=== PATIENT | female | born 1965 | race Caucasian/White ===

== ENCOUNTER 2018-10-09 14:22 | Emergency (ER) | payer MEDICAID ==
[~2018-10-09] VITALS: Ht 154.9 cm; Wt 98.9 kg
[2018-10-09 14:35] VITALS: BP_SYST 146; BP_SYST 186; BP_DIAS 103; BP_DIAS 96
--- NOTE | 2018-10-09 14:35 | NUR ---
Patient ambulated to bed 4. RN evaluating patient at bedside.
--- NOTE | 2018-10-09 14:48 | NUR ---
Dr. Underwood evaluating patient at bedside.
--- NOTE | 2018-10-09 14:50 | NUR ---
PT C/O SOB AND COUGH WITH YELLOWISH SPUTUM FOR 1 WEEK. PT STATES SHE HAD PRESSURE-LIKE CHEST PAIN LAST NIGHT, 12/28, BUT NOT AT THIS TIME. DENIES N/V/D. NO COUGH UP BLOOD, NIGHT SWEATS. SKIN IS PINK/WARM/DRY; AAOX4 WITH EVEN AND STEADY GAIT; LUNGS WHEEZES BL ON AUSCULTATION; HR EVEN AND REGULAR; PT DENIES ANY FEVER AT THIS TIME; VSS; PATIENT POSITIONED FOR COMFORT; HOB ELEVATED; BEDRAILS UP X1; BED DOWN. PT IS ON 5L OXYGEN VIA NASAL CANNULA AND MONITOR. OXYGEN SATS IS 98%. ER MADE AWARE OF PT STATUS.
--- NOTE | 2018-10-09 14:52 | NUR ---
Note undone in EDM - 10/09/18 at 1456 by MEDHR PT C/O SOB AND COUGH WITH YELLOWISH SPUTUM FOR 1 WEEK. PT STATES SHE HAD PRESSURE-LIKE CHEST PAIN LAST NIGHT, 12/28, BUT NOT AT THIS TIME. DENIES N/V/D. NO COUGH UP BLOOD, NIGHT SWEATS. SKIN IS PINK/WARM/DRY; AAOX4 WITH EVEN AND STEADY GAIT; LUNGS WHEEZES BL ON AUSCULTATION; HR EVEN AND REGULAR; PT DENIES ANY FEVER AT THIS TIME; VSS; PATIENT POSITIONED FOR COMFORT; HOB ELEVATED; BEDRAILS UP X1; BED DOWN. ER MD MADE AWARE OF PT STATUS.
--- NOTE | 2018-10-09 14:54 | NUR ---
RT IS AT BEDSIDE AND DOING RESPIRATOYR TREATMENT.
[2018-10-09] MEDS ORDERED: ALBUTEROL 0.083% 2.5 MG/3 ML NEBU INH ONE (14:55)
[2018-10-09] MEDS ORDERED: predniSONE 20 MG TAB PO ONE (14:55)
[2018-10-09] MEDS ORDERED: ALBUTEROL SULFATE/IPRATROPIU 3 ML SOL IH ONE (14:55)
[2018-10-09 15:35] VITALS: BP 163/89
--- NOTE | 2018-10-09 15:37 | NUR ---
Patient discharged with v/s stable. Written and verbal after care instructions given and explained. Pt's SOB has been improved. Patient alert, oriented and verbalized understanding of instructions. Ambulatory with steady gait. All questions addressed prior to discharge. ID band removed. Patient advised to follow up with PMD. Rx of Albuterol, Motrin, and Prednisone given. Patient educated on indication of medication including possible reaction and side effects. Opportunity to ask questions provided and answered.
== END 2018-10-09 15:37 | disposition home or self-care (01) ==
LOC: MED 14:22
DX: J44.9 Chronic obstructive pulmonary disease, unspecified (principal); I10 Essential (primary) hypertension; R11.2 Nausea with vomiting, unspecified; Z98.890 Other specified postprocedural states
CPT/HCPCS: 81002; 81025; 94640; 99283; J7512; J7613; J7620

== ENCOUNTER 2018-11-17 16:41 | Inpatient (IN) | payer MEDICAID ==
[~2018-11-17] VITALS: Ht 154.9 cm; Wt 107.5 kg
[2018-11-17 16:54] VITALS: BP 127/56
[2018-11-17] MEDS ORDERED: BUDE1AER IH (16:59)
[2018-11-17] MEDS ORDERED: OMEP20TC12 PO (16:59)
[2018-11-17] MEDS ORDERED: PRON INH (16:59)
[2018-11-17] MEDS ORDERED: ALBUTEROL SULFATE/IPRATROPIU 3 ML SOL IH ONE ×2 (17:10→17:40)
--- NOTE | 2018-11-17 17:32 | NUR ---
ER MD AT THE BEDSIDE ASSESSING THE PT. GOT THE BREATHING TREATMENT. PT BACK ON NC , O2 SAT 92%. BREATHING FINE, APPAERS MORE CALM AND RELAXED AT THIS TIME. WILL CONTINUE TO MONITOR PT.
--- NOTE | 2018-11-17 17:32 | NUR ---
PT BIB [facility] WITH SOBX2 DAYS. HX OF ASTHMA AND COPD. PT IS COUGHHING , HAS SOME BLOOD PRESENT IN COUGH. PT ALSO STATES TO HAVE EPI GASTRIC PAIN THAT RADIATED TO LLQ AND AT UPPER RIBS. PT IS ON OXYGEN MASK, OXYGEN SATURATION 96% AT THIS TIME. HAS BLE +1 PITTING EDEMA. TAKES INHALER AT HOME. PT CONNECTED TO MONITOR. ER MD TO SEE THE PT.
[2018-11-17] MEDS ORDERED: NACL 0.9% 500 ML IV SCH (17:36)
[2018-11-17] MEDS ORDERED: NITROGLYCERIN 2% 1 GM PKT TP ONE (17:40)
[2018-11-17] MEDS ORDERED: ASPIRIN 81 MG TAB.CHEW PO ONE ×2 (17:40)
[2018-11-17] MEDS ORDERED: methylPREDNISolone SS 125 MG/2 ML VIAL IVP ONE (17:40)
[2018-11-17] MEDS ORDERED: MAG SULF 2000 MG/WATER PREMIX 50 ML IV ONE (17:40)
[2018-11-17] MEDS ORDERED: PIPERACILLIN/TAZOBACTAM 3.375 GM in DEXTROSE 5% 50 ML IV ONE (18:10)
[2018-11-17] MEDS ORDERED: AZITHROMYCIN 1,000 MG in DEXTROSE 5% 500 ML IV ONE (18:10)
--- NOTE | 2018-11-17 18:14 | NUR ---
IV ACCESS UNOBTAINABLE AT THIS TIME, DR MAJANO MADE AWARE, WILL SET UP FOR CENTRAL LINE.
[2018-11-17 18:16] LABS: BASOPHILS % (AUTO) 0.1 % (0.0-2.0); EOSINOPHILS # (AUTO) 0.1 K/uL (0-0.4); EOSINOPHILS % (AUTO) 0.8 % (0.0-4.0); HEMATOCRIT 37.7 % (36-48); HEMOGLOBIN 12.5 g/dL (12.0-16.0); LYMPHOCYTES % (AUTO) 6.4 % (20.5-51.1); MEAN CORPUSCULAR HEMOGLOBIN 29 pg (27-31); MEAN CORPUSCULAR HGB CONC 33 g/dL (33-37); MEAN CORPUSCULAR VOLUME 88.4 fL (80-94); MONOCYTES # (AUTO) 1.1 K/uL (0.8-1.0); MONOCYTES % (AUTO) 7.4 % (1.7-9.3); NEUTROPHILS # (AUTO) 12.9 K/uL (1.8-7.7); NEUTROPHILS % (AUTO) 85.3 % (42.2-75.2); PLATELET COUNT (AUTO) 239 K/uL (140-450); RED BLOOD CELL COUNT(AUTO) 4.26 MIL/uL (4.20-5.40); RED CELL DISTRIBUTION WIDTH 13.8 % (11.6-13.7); WHITE BLOOD COUNT (AUTO) 15.1 K/uL (4.8-10.8)
[2018-11-17] MEDS ORDERED: ACETAMINOPHEN 325 MG TAB PO PRN (18:20)
[2018-11-17] MEDS ORDERED: DOCUSATE SODIUM 100 MG GELCAP PO PRN (18:20)
[2018-11-17] MEDS ORDERED: ZOLPIDEM 5 MG TAB PO PRN (18:20)
[2018-11-17 18:31] LABS: PROTHROMBIN TIME 10.1 secs (10.8-13.4)
--- NOTE | 2018-11-17 18:38 | NUR ---
ДМИТРИЙ KRAMER PLACING PICC LINE IN PT. WILL MEDICATE ONC THE PICC LINE IS INSERTED IN PT.
[2018-11-17 18:43] LABS: ALBUMIN 4.1 g/dL (3.4-5.0); ANION GAP 17.7 (8-16); CARBON DIOXIDE 23.2 mmol/L (21-32); CREATININE 1.2 mg/dL (0.6-1.3); TOTAL BILIRUBIN 1.1 mg/dL (0.0-1.0)
[2018-11-17 18:48] LABS: POTASSIUM 2.9 mmol/L (3.5-5.1)
--- NOTE | 2018-11-17 18:50 | NUR ---
DR MAJANO UNABLE TO PLACE CENTRAL LINE AT THIS TIME, WILL REQUEST RESIDENTS TO PLACE LINE GUIDED BY US.
[2018-11-17] MEDS ORDERED: POTASSIUM CHLORIDE 10 MEQ TABER PO ONE (18:55)
--- NOTE | 2018-11-17 18:56 | NUR ---
PT UNABLE TO RECALL ALL HOME MEDS. STATES SHE TAKES MEDS TAHT WER RECONCILLED WELL VITAMIN D AND HIGH BLOOD PRESSURE MEDICATION. Addendum: 11/17/18 at 1857 by MEDWL PT TAKES A EPI PEN AND NEBULIZED ALBUTEROL.
--- NOTE | 2018-11-17 18:57 | NUR ---
RESIDENT TRYING TO PUT THE PICC LINE AGAIN.
[2018-11-17] MEDS: ALBUTEROL SULFATE/IPRATROPIU 3 ML SOL IH SCH (19:00)
[2018-11-17 19:05] LABS: MAGNESIUM 2.5 mg/dL (1.8-2.4); PHOSPHORUS 3.4 mg/dL (2.5-4.9); THYROID STIMULATING HORMONE 1.28 uIU/mL (0.34-3.74)
--- NOTE | 2018-11-17 19:14 | NUR ---
bedside repoert given to pm rn. pt stable at this time. resident inserting central line. consent signed.
--- NOTE | 2018-11-17 19:15 | NUR ---
RECEIVED REPORT FROM DIONTE THAKUR. TRANSFER OF CARE AT THIS TIME.
--- NOTE | 2018-11-17 19:26 | NUR ---
HEAPARIN 100 UNIT VIAL X [address] DARDEN.
[2018-11-17 20:20] VITALS: BP 112/46
[2018-11-17] MEDS: NACL 0.9% 1,000 ML IV SCH (20:20)
--- NOTE | 2018-11-17 20:20 | NUR ---
RECEIVED REPORT FROM ED NURSE AT BEDSIDE. PT IN STABLE CONDITION. AAOX4. INTRODUCED SELF TO PT. BOARD UPDATED. NO COMPLAINTS OF PAIN. PT HAS SOB ON 3L O2 VIA NC. AFEBRILE. PT IS AMBULATORY BUT IS SOB WITH MOVEMENT. PT HAS L UPPER CHEST PICC LINE THAT WAS INSERTED IN THE ER PATENT AND INTACT RUNNING NS@20ML/HR. SKIN WARM, DRY, AND NOT INTACT DUE TO OLD SKIN GRAFTS THAT WERE TAKEN FROM THE ELBOW AREA THAT HAS NOT HEALED PROPERLY. BED LOCKED IN LOW POSITION. CALL LEW WITHIN REACH. SAFETY PRECAUTION IN PLACE. ALL NEEDS MET AT THIS TIME.
--- NOTE | 2018-11-17 20:20 | NUR ---
Patient will be admitted to care of Dr. Varghese. Admited to TELE. Will go to room 106A. Belongings list completed. Report to DIONTE Lofton.
[2018-11-17] MEDS: HYDROcodone/APAP 5/325 MG 1 TAB TAB PO PRN (20:41)
--- NOTE | 2018-11-17 20:41 | NUR ---
NORCO GIVEN FOR 5/10 ABDOMINAL PAIN. PT TOLERATED WELL.
[2018-11-17] MEDS ORDERED: KCL 20 MEQ/WATER INJ PREMIX 200 ML IV SCH (21:00)
--- NOTE | 2018-11-17 21:28 | NUR ---
POTASSIUM HUNG AND RUNNING. Addendum: 11/17/18 at 2329 by Rolly Larsen RN 04/21 BAGS
[2018-11-17] MEDS: ALBUTEROL SULFATE/IPRATROPIU 3 ML SOL IH PRN (22:48)
[2018-11-17] MEDS ORDERED: AZITHROMYCIN 500 MG in DEXTROSE 5% 250 ML IV SCH (23:00)
--- NOTE | 2018-11-17 23:30 | NUR ---
PT LAYING IN BED SLEEPING COMFORTABLY BUT AROUSABLE. NO S/S OF DISTRESS NOTED. WILL CONTINUE TO MONITOR.
[2018-11-18] VITALS: BP 118/69
--- NOTE | 2018-11-18 | NUR ---
CONSENT FOR NEW INSERTION OF CENTRAL LINE OBTAINED.
[2018-11-18] MEDS: MORPHINE SULFATE 2 MG/ML SYR IVP PRN ×5 (00:29→20:27)
--- NOTE | 2018-11-18 00:29 | NUR ---
MORPHINE GIVEN FOR ABDOMINAL PAIN AND BEFORE REINSERTION OF CENTRAL LINE. PT TOLERATED WELL.
--- NOTE | 2018-11-18 00:58 | NUR ---
MD ORDERED TO GIVE HEPARIN SUBQ. PT TOLERATED WELL.
--- NOTE | 2018-11-18 02:20 | NUR ---
PT SLEEPING COMFORTABLY BUT AROUSABLE. NO S/S OF DISTRESS NOTED. WILL CONTINUE TO MONITOR.
--- NOTE | 2018-11-18 03:00 | NUR ---
CENTRAL LINE REPLACED TO R UPPER CHEST. TIME OUT COMPLETE.
[2018-11-18 04:00] VITALS: BP 103/49
[2018-11-18] MEDS ORDERED: cefTRIAXone 1,000 MG VIAL ONE (04:42)
--- NOTE | 2018-11-18 04:50 | NUR ---
LI DENNIS AND RUNNING. PT TOLERATED WELL.
[2018-11-18] MEDS: methylPREDNISolone SS 125 MG/2 ML VIAL IVP SCH ×3 (04:53→20:26)
--- NOTE | 2018-11-18 04:53 | NUR ---
SOLUMEDROL GIVEN IVP. PT TOLERATED WELL.
--- NOTE | 2018-11-18 05:00 | NUR ---
CONSENT FOR CT CHEST ANGIO W/WO CONTRAST OBTAINED.
[2018-11-18] MEDS ORDERED: AZITHROMYCIN 500 MG INJ VIAL IV ONE (05:27)
--- NOTE | 2018-11-18 05:30 | NUR ---
AZITHMYCIN HUNG AND RUNNING. PT TOLERATING WELL.
[2018-11-18] MEDS: PANTOPRAZOLE 40 MG TABEC PO SCH (05:40)
--- NOTE | 2018-11-18 05:40 | NUR ---
PROTONIX GIVEN PO. PT TOLERATED WELL.
[2018-11-18 06:12] LABS: ANION GAP 17.1 (8-16); CARBON DIOXIDE 22.3 mmol/L (21-32); CREATININE 1.5 mg/dL (0.6-1.3); POTASSIUM 3.4 mmol/L (3.5-5.1)
[2018-11-18 06:22] LABS: MAGNESIUM 2.9 mg/dL (1.8-2.4)
[2018-11-18 06:29] LABS: CHOL/HDL RATIO 4.4 (1-4.5)
--- NOTE | 2018-11-18 06:30 | NUR ---
PT AWAKE AND ALERT. NO S/S OF DISTRESS NOTED. WILL CONTINUE TO MONITOR.
[2018-11-18 06:43] LABS: HEMATOCRIT 33.4 % (36-48); HEMOGLOBIN 11.1 g/dL (12.0-16.0); LYMPHOCYTES # (AUTO) 0.4 K/uL (2.5-16.5); LYMPHOCYTES % (AUTO) 3.4 % (20.5-51.1); MEAN CORPUSCULAR HEMOGLOBIN 30 pg (27-31); MEAN CORPUSCULAR HGB CONC 33 g/dL (33-37); MEAN CORPUSCULAR VOLUME 88.7 fL (80-94); MONOCYTES # (AUTO) 0.1 K/uL (0.8-1.0); MONOCYTES % (AUTO) 0.8 % (1.7-9.3); NEUTROPHILS # (AUTO) 12.3 K/uL (1.8-7.7); NEUTROPHILS % (AUTO) 95.8 % (42.2-75.2); PLATELET COUNT (AUTO) 222 K/uL (140-450); RED BLOOD CELL COUNT(AUTO) 3.77 MIL/uL (4.20-5.40); RED CELL DISTRIBUTION WIDTH 13.7 % (11.6-13.7); WHITE BLOOD COUNT (AUTO) 12.8 K/uL (4.8-10.8)
--- NOTE | 2018-11-18 07:30 | NUR ---
RECEIVED REPORT FROM CHECK VIEWER NURSE, NO S/S OF DISTRESS FROM PATIENT THIS MORNING. PT WAS PREPARING TO GO FOR A CT SCAN. WILL CONTINUE TO MONITOR.
[2018-11-18] MEDS: ALBUTEROL SULFATE/IPRATROPIU 3 ML SOL IH SCH ×3 (07:52→20:29)
[2018-11-18 08:08] VITALS: BP 116/55
[2018-11-18] MEDS: FAMOTIDINE 20 MG TAB PO SCH (08:28)
[2018-11-18] MEDS: LACTOBACILLUS RHAMNOSUS GG 1 EACH CAP PO SCH (08:28)
[2018-11-18] MEDS: LORATADINE 10 MG TAB PO SCH (08:32)
--- NOTE | 2018-11-18 08:32 | NUR ---
PATIENT HAS BEEN SCREENED AND CATEGORIZED HIGH NUTRITION RISK. PATIENT WILL BE SEEN WITHIN 1-2 DAYS OF ADMISSION. 11/18/18-11/19/[address]
[2018-11-18] MEDS ORDERED: PIPERACILLIN/TAZOBACTAM 2.25 GM in DEXTROSE 5% 50 ML IV SCH (08:40)
--- NOTE | 2018-11-18 08:55 | NUR ---
GAVE PATIENT PAIN MEDICATION FOR CONTINUOUS ABDOMINAL PAIN, 12/28. PT WAS GRIMACING AND GRASPING TO PAIN SITE. BP WNL PRIOR TO ADMINISTRATION OF PAIN MEDICATION. WILL MONITOR FOR ALLEVIATION OF PAIN POST MEDICATION ADMINISTRATION.
[2018-11-18] MEDS ORDERED: FUROSEMIDE 40 MG/4 ML VIAL IVP SCH (09:00)
[2018-11-18] MEDS ORDERED: LACTOBACILLUS RHAMNOSUS GG 1 EACH CAP PO SCH (09:00)
[2018-11-18] MEDS ORDERED: POTASSIUM CHLORIDE 10 MEQ TABER PO SCH (09:00)
[2018-11-18] MEDS: ONDANSETRON 4 MG/2 ML VIAL IM/IVP PRN (09:09)
[2018-11-18 12:00] VITALS: BP 103/53
[2018-11-18] MEDS ORDERED: PIPERACILLIN/TAZOBACTAM 3.375 GM VIAL IV ONE (12:29)
[2018-11-18] MEDS: PIPERACILLIN/TAZOBACTAM 3.375 GM in DEXTROSE 5% 50 ML IV SCH ×3 (12:51→23:03)
--- NOTE | 2018-11-18 13:10 | NUR ---
ASSISTED PATIENT IN USING THE BEDSIDE COMMODE. PATIENT TOLERATED WELL WITH MINIMAL FATIGUE. WILL CONTINUE TO MONITOR.
--- NOTE | 2018-11-18 15:10 | NUR ---
11/18/18 RD INITIAL ASSESSMENT COMPLETED PLEASE REFER TO NUTRITION ASSESSMENT UNDER CARE ACTIVITY FOR ESTIMATED NUTRITIONAL NEEDS. 1. CONTINUE CARDIAC DIET TOLERATED 2. RD PROVIDED CHF NUTRITION EDUCATION. PT ACCEPTED. 3. RD TO FOLLOW-UP 3-5 DAYS, MODERATE RISK PATRICE DUNN, RD
[2018-11-18 16:00] VITALS: BP_SYST 108; BP_DIAS 53; BP_DIAS 57
--- NOTE | 2018-11-18 16:16 | NUR ---
PATIENT COMPLAINED OF NOT HAVING A BOWEL MOVEMENT IN 4 DAYS. ASKED PATIENT IF SHE WANTED ME TO CONTACT DOCTOR FOR SOMETHING OTHER THAN PRN COLACE BUT PATIENT WANTED TO TRY THE COLACE. ADMINISTERED THE PRN COLACE. WILL CONTINUE TO MONITOR
--- NOTE | 2018-11-18 17:20 | NUR ---
PATIENT HAD A BOWEL MOVEMENT PER DIONTE ARECHIGA.
--- NOTE | 2018-11-18 17:29 | NUR ---
WAS NOTIFIED BY LAB OF REJECTION OF SPUTUM CULTURE. WILL OBTAIN ANOTHER ONE.
[2018-11-18] MEDS: NACL 0.9% 1,000 ML IV SCH (18:20)
--- NOTE | 2018-11-18 19:10 | NUR ---
ENDORSED PT TO FORGE HELPER NURSE FOR CONTINUITY OF CARE
--- NOTE | 2018-11-18 19:11 | NUR ---
REPORT RECEIVED FROM AM NURSE AT BEDSIDE. PT IN STABLE CONDITION. AAOX4. INTRODUCED SELF TO PT. BOARD UPDATED. NO COMPLAINTS OF PAIN. PT HAS SOB AND LABORED BREATHING ON 4L O2 VIA NC. AFEBRILE. PT IS AMBULATORY. IV SITE R IJ TRIPLE LUMEN PATENT AND INTACT. SKIN WARM, DRY, AND NOT INTACT DUE TO BILATERAL WOUNDS ON THE ELBOWS. BED LOCKED IN LOW POSITION. CALL LEW WITHIN REACH. SAFETY PRECAUTION IN PLACE. ALL NEEDS MET AT THIS TIME.
[2018-11-18 20:00] VITALS: BP 126/61
--- NOTE | 2018-11-18 20:27 | NUR ---
HEPARIN GIVEN SUBQ. SOLUMEDROL GIVEN IVP. MORPHINE GIVEN FOR 7/10 ABDOMINAL PAIN. PT TOLERATED WELL.
--- NOTE | 2018-11-18 21:00 | NUR ---
PT NOW ON 5L O2 VIA OXYMIZER AND BIPAP.
[2018-11-18] MEDS: ALBUTEROL SULFATE/IPRATROPIU 3 ML SOL IH PRN (21:08)
--- NOTE | 2018-11-18 21:20 | NUR ---
CALLED BY RN, PATIENT DESATURATING TO 86%. INCREASED OXYGEN TO 5L VIA NASAL CANNULA, PULSE OX SAT 87%. PATIENT PRESENTED WITH INCREASED WORK OF BREATHING AND SOB. SCHEDULED BREATHING TREATMENT ADMINISTERED. TOLERATED TX WELL WITHOUT ADVERSE SIDE EFFECTS. CALLED RESIDENT PHYSICIAN DUE TO PATIENTS CONTINUED LABORED/INCREASED WORK OF BREATHING. ABG DRAWN WITHOUT INCIDENT, RESULTS GIVEN TO PHYSICIAN. PLACED PATIENT ON BIPAP AT DOCUMENTED SETTINGS. PRN BREATHING TREATMENT ADMINISTERED IN-LINE WITH NIPPV DUE TO CONTINUED WHEEZING/SOB. TOLERATED PRN TREATMENT WELL, NO ADVERSE SIDE EFFECTS NOTED. BIPAP CHECK DONE. BIPAP ALARMS ON AND AUDIBLE. PULSE OX ON AND FUNCTIONING. SKIN PROTECTIVE GEL BARRIER IN PLACE. INSTRUCTED PATIENT ON DONNING AND DOFFING OF EQUIPMENT. TOLERATING BIPAP WELL AT THIS TIME. WILL CONTINUE TO MONITOR.
[2018-11-18] MEDS ORDERED: AZITHROMYCIN 250 MG in DEXTROSE 5% 250 ML IV SCH (23:00)
--- NOTE | 2018-11-18 23:03 | NUR ---
VIDHYA HUNG AND RUNNING. PT TOLERATING WELL.
[2018-11-19] VITALS (29 sets, daily range): BP systolic 102–133; BP diastolic 48–94
--- NOTE | 2018-11-19 01:20 | NUR ---
PT SLEEPING COMFORTABLY IN BED BUT AROUSABLE. NO S/S OF DISTRESS NOTED. NO COMPLAINTS OF PAIN. NO SOB ON BIPAP. AFEBRILE. WILL CONTINUE TO MONITOR.
[2018-11-19] MEDS: ALBUTEROL SULFATE/IPRATROPIU 3 ML SOL IH PRN ×2 (01:40→05:31)
--- NOTE | 2018-11-19 01:50 | NUR ---
BIPAP CHECK DONE. TOLERATING BIPAP WELL. BIPAP ALARMS ON AND AUDIBLE. SKIN PROTECTIVE GEL IN PLACE. PATIENT ON BEDSIDE PULSE OX MONITOR. TOLERATING WELL. PRN BREATHING TREATMENT ADMINISTERED- PATIENT WHEEZING. TOLERATED TX WELL, NO ADVERSE SIDE EFFECTS. NO ACUTE RESPIRATORY DISTRESS NOTED AT THIS TIME. WILL CONTINUE TO MONITOR.
--- NOTE | 2018-11-19 03:30 | NUR ---
PT SLEEPING COMFORTABLY IN BED BUT AROUSABLE. NO S/S OF DISTRESS NOTED. WILL CONTINUE TO MONITOR.
[2018-11-19] MEDS: methylPREDNISolone SS 40 MG/ML VIAL IVP SCH ×3 (04:42→18:57)
[2018-11-19] MEDS: MORPHINE SULFATE 2 MG/ML SYR IVP PRN ×2 (04:42→12:18)
--- NOTE | 2018-11-19 04:42 | NUR ---
SOLUMEDROL GIVEN IVP. MORPHINE GIVEN FOR 10/27 ABDOMINAL PAIN. PT TOLERATED WELL.
[2018-11-19] MEDS: PIPERACILLIN/TAZOBACTAM 3.375 GM in DEXTROSE 5% 50 ML IV SCH ×4 (05:13→23:40)
--- NOTE | 2018-11-19 05:13 | NUR ---
VIDHYA HUNG AND RUNNING. PT TOLERATED WELL.
[2018-11-19] MEDS: PANTOPRAZOLE 40 MG TABEC PO SCH (05:30)
--- NOTE | 2018-11-19 05:30 | NUR ---
PROTONIX GIVEN PO. PT TOLERATED WELL.
--- NOTE | 2018-11-19 05:45 | NUR ---
BIPAP CHECK DONE. PRN BREATHING TX ADMINISTERED. TOLERATED TX WELL WITHOUT ADVERSE SIDE EFFECTS. NO ACUTE DISTRESS NOTED AT THIS TIME. WILL CONTINUE TO MONITOR.
[2018-11-19 06:40] LABS: PHOSPHORUS 5.5 mg/dL (2.5-4.9)
[2018-11-19 06:45] LABS: ANION GAP 14.8 (8-16); CARBON DIOXIDE 24.6 mmol/L (21-32); CREATININE 1.7 mg/dL (0.6-1.3); POTASSIUM 4.4 mmol/L (3.5-5.1)
--- NOTE | 2018-11-19 06:45 | NUR ---
PT AWAKE AND ALERT BRP. NO S/S OF DISTRESS NOTED. WILL CONTINUE TO MONITOR.
[2018-11-19 06:50] LABS: HEMATOCRIT 31.8 % (36-48); HEMOGLOBIN 10.4 g/dL (12.0-16.0); MEAN CORPUSCULAR HEMOGLOBIN 30 pg (27-31); MEAN CORPUSCULAR HGB CONC 33 g/dL (33-37); MEAN CORPUSCULAR VOLUME 89.8 fL (80-94); PLATELET COUNT (AUTO) 220 K/uL (140-450); RED BLOOD CELL COUNT(AUTO) 3.54 MIL/uL (4.20-5.40); WHITE BLOOD COUNT (AUTO) 18.8 K/uL (4.8-10.8)
[2018-11-19] MEDS: ALBUTEROL SULFATE/IPRATROPIU 3 ML SOL IH SCH ×3 (06:57→18:47)
--- NOTE | 2018-11-19 07:01 | NUR ---
RECEIVED PT OFF OF BIPAP 5L NASAL CANNULA. PT TACHYPNEIC STATES SLIGHT SOB. PT STATES SHE IS IN PAIN 11/27 WILL NOTIFY NURSE.
--- NOTE | 2018-11-19 07:15 | NUR ---
RECEIVED BEDSIDE REPORT FROM WAREHOUSE HELPER NURSE FOR CONTINUITY OF CARE. PATIENT AWAKE AND SITTING UP ON BED. SPO2 MONITOR AT BEDSIDE, SPO2 IS AT 88% AT THIS TIME. RESPIRATION EVEN AND UNLABORED. PATIENT AAOX4, DENIED PAIN. NO SIGNS OF DISTRESS NOTED. IV ON RIJ TRIPLE LUMEN,CLEAN AND INTACT, INFUSING PER MD ORDER. PATIENT IS ABLE TO AMBULATE WITH ASSIST AND CONTINENT. DISCUSSED PLAN OF CARE WITH PATIENT AND PATIENT VERBALIZED UNDERSTANDING. TELE MONITOR ATTACHED. SAFETY MEASURES IN PLACE. BED IN LOW POSITION AND CALL LIGHT WITHIN REACH. INSTRUCTED PATIENT TO USE THE CALL LIGHT FOR ANY ASSISTANCE AND PATIENT WAS AWARE.
[2018-11-19] MEDS: HYDROcodone/APAP 5/325 MG 1 TAB TAB PO PRN (07:44)
--- NOTE | 2018-11-19 07:44 | NUR ---
PATIENT COMPLAINED 5/10 PAIN ON HER SHOULDER, ADMINISTERED PRN PAIN MED NORCO, PATIENT TOLERATED WELL. PATIENT IS ON 6L OXIMIZER AND ON O2 MONITOR AND SPO2 86% AT THIS TIME. ELEVATED HOB AND INSTRUCTED PATIENT TO FOCUS ON BREATHING. WILL NOTIFY RT FOR CURRENT SPO2.
--- NOTE | 2018-11-19 07:56 | NUR ---
RT WAS AT BEDSIDE AND ASSESSING PATIENT AT THIS TIME.
[2018-11-19 07:59] LABS: BASOPHILS % (MANUAL) 0 % (0-2); EOSINOPHILS % (MANUAL) 0 % (0-4); LYMPHOCYTES % (MANUAL) 1 % (20-46); MONOCYTES % (MANUAL) 2 % (5-12)
--- NOTE | 2018-11-19 08:10 | NUR ---
RT CHANGED PATIENT FROM 6L OXYMIZER TO 60% BIPAP AND SPO2 IS AT 92% AT THIS TIME. RR 20, AND RESPIRATION EVEN AND UNLABORED. PATIENT IS RESTING ON BED AT THIS TIME. NO SIGNS OF DISTRESS NOTED. SAFETY MEASURES IN PLACE. TELE MONITOR ATTACHED. BED IN LOW POSITION AND CALL LIGHT WITHIN REACH. INSTRUCTED PATIENT TO USE THE CALL LIGHT FOR ANY ASSISTANCE AND PATIENT WAS AWARE.
[2018-11-19] MEDS ORDERED: FUROSEMIDE 20 MG/2 ML VIAL IVP SCH ×2 (09:00→14:00)
[2018-11-19] MEDS: LACTOBACILLUS RHAMNOSUS GG 1 EACH CAP PO SCH (09:24)
[2018-11-19] MEDS: FAMOTIDINE 20 MG TAB PO SCH (09:24)
[2018-11-19] MEDS: LORATADINE 10 MG TAB PO SCH (09:25)
--- NOTE | 2018-11-19 09:27 | NUR ---
ADMINISTERED MEDS PER MD ORDER, PATIENT TOLERATED WELL. MEDICATION EDUCATION PROVIDED AT BEDSIDE AND PATIENT VERBALIZED UNDERSTANDING. RESPIRATION EVEN AND UNLABORED ON 60% BIPAP. PATIENT DENIED PAIN. NO SIGNS OF DISTRESS NOTED. SAFETY MEASURES IN PLACE. TELE MONITOR ATTACHED. BED IN LOW POSITION AND CALL LIGHT WITHIN REACH. INSTRUCTED PATIENT TO USE THE CALL LIGHT FOR ANY ASSISTANCE AND PATIENT WAS AWARE.
--- NOTE | 2018-11-19 10:10 | NUR ---
CALLED DR JOEL ABOUT RENEW RESTRAINT ORDER. DR JOEL SAID OK, SHE WILL DO IT
--- NOTE | 2018-11-19 10:29 | NUR ---
PT TOLERATING BIPAP WELL AT THIS TIME. ALARMS ON AND FUNCTIONING. WILL CONTINUE TO MONITOR.
--- NOTE | 2018-11-19 11:21 | NUR ---
PATIENT IS RESTING ON BED AT THIS TIME. AROUSABLE TO VOICE. EVEN AN UNLABORED CHEST RISES ON 60% BIPAP, SPO2 IS AT 91% AT THIS TIME. NO SIGNS OF DISTRESS NOTED. TELE MONITOR ATTACHED. SAFETY MEASURES IN PLACE. BED IN LOW POSITION AND CALL LIGHT WITHIN REACH. I
--- NOTE | 2018-11-19 12:18 | NUR ---
ASSISTED PATIENT TO USE THE BEDSIDE COMMODE AND GOT BACK ON BED SAFELY. PATIENT COMPLAINED SHE HAS 8/10 PAIN AROUND HER BACK, ADMINISTERED PRN PAIN MED, PATIENT TOLERATED WELL. SWITCHED PT TO OXYMIZER AND PATIENT IS EATING LUNCH AT THIS TIME. SAFETY MEASURES IN PLACE. BED IN LOW POSITION AND CALL LIGHT WITHIN REACH. INSTRUCTED PATIENT TO USE THE CALL LIGHT FOR ANY ASSISTANCE AND PATIENT WAS AWARE.
--- NOTE | 2018-11-19 12:44 | NUR ---
PATIENT IS EATING LUNCH AND TALKING TO MARC AT BEDSIDE. NO SIGNS OF DISTRESS NOTED. TELE MONITOR ATTACHED. SAFETY MEASURES IN PLACE. BED IN LOW POSITION AND CALL LIGHT WITHIN REACH. INSTRUCTED PATIENT TO USE THE CALL LIGHT FOR ANY ASSISTANCE AND PATIENT WAS AWARE.
[2018-11-19] MEDS: CALCIUM ACETATE 667 MG TAB PO SCH ×2 (13:13→17:08)
--- NOTE | 2018-11-19 13:15 | NUR ---
ADMINISTERED MEDS PER MD ORDER, PATIENT TOLERATED WELL. PATIENT IS TALKING TO MARC AT BEDSIDE. RESPIRATION EVEN AND UNLABORED ON 6L OXIMYZER, AND SPO2 IS AT 87%. TELE MONITOR ATTACHED. SAFETY MEASURES IN PLACE. BED IN LOW POSITION AND CALL LIGHT WITHIN REACH. INSTRUCTED PATIENT TO USE THE CALL LIGHT FOR ANY ASSISTANCE AND PATIENT WAS AWARE.
--- NOTE | 2018-11-19 13:57 | NUR ---
FOUND PT OFF OF BIPAP ON OXYMIZER DESATURATING BELOW PHYSICIAN ORDER. PT PLACED BACK ON BIPAP DUE TO INCREASED WOB AND DECREASED SPO2. BREATHING TX TO BE ADMINISTERED. BIPAP ALARMS ON AND FUNCTIONING. PROTECTA-GEL PLACED UNDER MASK FOR SKIN PROTECTION. WILL CONTINUE TO MONITOR.
--- NOTE | 2018-11-19 14:17 | NUR ---
ADMINISTERED MED PER MD ORDER, PATIENT TOLERATED WELL. MEDICATION EDUCATION PROVIDED TO PATIENT AND PATIENT VERBALIZED UNDERSTANDING. COLLECTED URINE VIA VOID AND DELIVERED TO LAB. PATIENT AWAKE AND RESTING ON BED AT THIS TIME. NO SIGNS OF DISTRESS NOTED. TELE MONITOR ATTACHED. SAFETY MEASURES IN PLACE. BED IN LOW POSITION AND CALL LIGHT WITHIN REACH. INSTRUCTED PATIENT TO USE THE CALL LIGHT FOR ANY ASSISTANCE AND PATIENT WAS AWARE.
--- NOTE | 2018-11-19 14:30 | NUR ---
CALLED DR JOEL ABOUT RENEW RESTRAINT ORDER. DR JOEL SAID OK, SHE WILL DO IT
--- NOTE | 2018-11-19 14:48 | NUR ---
CALLED DR JOEL ABOUT MG 1.6. DR JOEL SAID OK. NO ORDERS RECEIVED.
--- NOTE | 2018-11-19 15:25 | NUR ---
ASSISTED PATIENT TO USE THE BEDSIDE COMMODE AND BACK ON BED SAFELY. RT PUT THE BIPAP BACK ON FOR PATIENT. NO SIGNS OF DISTRESS NOTED. TELE MONITOR ATTACHED. SAFETY MEASURES IN PLACE. BED IN LOW POSITION AND CALL LIGHT WITHIN REACH. INSTRUCTED PATIENT TO USE THE CALL LIGHT FOR ANY ASSISTANCE AND PATIENT WAS AWARE.
--- NOTE | 2018-11-19 15:35 | NUR ---
PT REMAINS TACHYPNEIC AFTER USING BEDSIDE COMMODE. PT TOLERATING SETTINGS WELL AT THIS TIME. WILL CONTINUE TO MONITOR.
--- NOTE | 2018-11-19 16:04 | NUR ---
EXPLAINED TO PATIENT THAT LAST SPUTUM COLLECTED CONTAIN TOO MUCH SALIVA AND LAB WAS NOT ABLE TO USE IT. NEED TO COLLECT SPUTUM AGAIN, PATIENT VERBALIZED UNDERSTANDING. PROVIDED SPECIMEN CUP TO PATIENT AND INSTRUCTED PATIENT TO USE IT WHEN SHE HAS SPUTUM. PATIENT SAID OK.
--- NOTE | 2018-11-19 16:34 | NUR ---
FIO2 INCREASED TO 75% DUE TO SPO2 LOW 80'S. AND NURSE MADE AWARE.
--- NOTE | 2018-11-19 16:38 | NUR ---
CONTACTED [facility] AT [phone]. HE STATED TO FAX THE MEDICAL OXYGEN REQUEST FORM AND ABG ON ROOM AIR 2 DAYS PRIOR TO DC. FAX NUMBER [phone]. CHARGE NURSE AND DR DASILVA MADE AWARE.
--- NOTE | 2018-11-19 16:39 | NUR ---
PATIENT IS SITTING UP ON EDGE OF BED AND TALKING TO DAUGHTER HARSHA AT BEDSIDE. NO SIGNS OF DISTRESS NOTED. TELE MONITOR ATTACHED. SAFETY MEASURES IN PLACE. BED IN LOW POSITION AND CALL LIGHT WITHIN REACH. INSTRUCTED PATIENT TO USE THE CALL LIGHT FOR ANY ASSISTANCE AND PATIENT WAS AWARE.
--- NOTE | 2018-11-19 16:42 | NUR ---
DR JOEL IS TALKING TO PATIENT AND PATIENT'S DAUGHTER AT BEDSIDE. TELE MONITOR ATTACHED. SAFETY MEASURES IN PLACE. BED IN LOW POSITION AND CALL LIGHT WITHIN REACH.
--- NOTE | 2018-11-19 16:46 | NUR ---
SPOKE TO REGARDING ABG TO BE DONE ON ROOM AIR AND PT NOT BEING ABLE TO COME OFF OF OXYGEN/BIPAP DUE TO LOW SPO2 AND SOB AT THIS TIME. PHYSICIAN STATES UNDERSTANDING AND STATES FOR ABG NOT TO BE DONE AT THIS TIME.
--- NOTE | 2018-11-19 17:09 | NUR ---
ADMINISTERED MED PER MD ORDER, PATIENT TOLERATED WELL. MEDICATION EDUCATION PROVIDED TO PATIENT AT BEDSIDE AND PATIENT VERBALIZED UNDERSTANDING. PATIENT IS SITTING UP ON BED AND SPO2 88% ON BIPAP. DAUGHTER HARSHA IS BY BEDSIDE. SAFETY MEASURES IN PLACE. BED IN LOW POSITION AND CALL LIGHT WITHIN REACH.
--- NOTE | 2018-11-19 17:30 | NUR ---
TRANSFERRED PATIENT TO ICU. PATIENT AWAKE AND ON BIPAP SPO2 AT 87%. DAUGHTER HARSHA IS BY BEDSIDE.
[2018-11-19] MEDS ORDERED: SUCCINYLCHOLINE CHLORIDE 200 MG/10 ML VIAL IVP ONE (17:35)
[2018-11-19] MEDS ORDERED: ETOMIDATE 20 MG/10 ML VIAL IVP ONE (17:35)
[2018-11-19] MEDS ORDERED: NOREPINEPHRINE 16 MG in DEXTROSE 5% 250 ML IV PRN (17:45)
--- NOTE | 2018-11-19 18:00 | NUR ---
PT IS BEING INTUBATED BY DR JOEL AND DR JENKINS. ASSISTED MD WITH INTUBATION MED.
--- NOTE | 2018-11-19 18:15 | NUR ---
STARTED PROPOFOL. DRY WEIGHT 116KG. RASS GOAL -3. PT IS +3 AT THIS TIME. RESTRAINT APPLIED. ETT TO VENT, LIP LINE 25.
[2018-11-19] MEDS: NACL 0.9% 1,000 ML IV SCH (18:20)
--- NOTE | 2018-11-19 18:29 | NUR ---
UNABLE TO OBTAIN VENT PARAMETERS AT THIS TIME DUE TO PT AGITATION AND ABNORMAL BREATHING PATTERN WILL ENDORSE TO [employer] DEVELOPER. PT ETT IS 7.5@ 23GUMS. VENT ALARMS ON AND FUNCTIONING. PT REMAINS AGITATED. AIRWAY IS PATENT AND SECURE. BILATERAL BREATH SOUNDS HEARD ON AUSCULTATION.
--- NOTE | 2018-11-19 18:30 | NUR ---
OGT INSERTED. PT IS CALM AT THIS TIME. RASS -3. REPORT RECEIVED FROM TELE NURSE ED.
[2018-11-19 18:36] LABS: APPEARANCE,URINE CLEAR (CLEAR); BILIRUBIN,URINE NEGATIVE (NEGATIVE); BLOOD, URINE 1+ (NEGATIVE); COLOR,URINE YELLOW (YELLOW); LEUKOCYTE ESTERASE ,URINE NEGATIVE (NEGATIVE); NITRITE, URINE NEGATIVE (NEGATIVE); UGLUCOSE NEGATIVE (NEGATIVE)
[2018-11-19 18:42] LABS: BARBITURATE, URINE NEG. ng/ml (NEG <=200); BENZODIAZEPINE, URINE NEG. ng/mL (NEG <=200); CANNABINOID, URINE NEG. ng/mL (NEG <=50); COCAINE, URINE NEG. ng/mL (NEG <=300); OPIATE, URINE POS. ng/mL (NEG <=2000); PHENCYCLIDINE SCREEN,URINE NEG. ng/mL (NEG <=25)
--- NOTE | 2018-11-19 19:20 | NUR ---
RECEIVED REPORT FROM AM NURSE. PT AT BED, SEDATED, RASS -2, PERRL 3MM, BRISK, HEART RATE REGULAR, SINUS RHYTHM ON MONITOR, S1S2 PRESENT, CAP REFILL <3S, LUNG SOUNDS CLEAR THROUGHOUT, PT ON ETT TO VENT, SIZE 7.5, TAPED AT 25 AT THE LIP, FIO2 100%, RR 16, PEEP 5, FLOW 28, ABDOMEN, SOFT, ROUND, NONDISTENDED, NONTENDER, OG TUBE IN PLACE, FC INSERTED, DRAINING CLEAR, YELLOW, URINE, BLADDER, SOFT, ROUND, NONDISTENDED, NONTENDER, SKIN, WARM, DRY, COLOR APPROPRIATE TO ETHNICITY, SKIN NON INTACT, OPEN WOUND ON LEFT ELBOW, OPTIFOAM DRESSING PLACED, ROUND SKIN BUMP NOTED ON LEFT ELBOW NEAR THE OPEN WOUND. BILATERAL SOFT WRIST RESTRAINTS NOTED, RIGHT INTRAJUGULAR CENTRAL LINE, TRIPLE LUMEN, RUNNING PROPOFOL AT 40 MCG/KG/MIN, NS RUNNING AT 10 ML /HR, DRY WEIGHT 116 KG, HOB AT 30 DEGREES, SIDERAILS UP X2, CALL LIGHT WITHIN REACH. Addendum: 11/20/18 at 0319 by Jean-Paul Jones RN VENT SETTINGS AT AC/PC
--- NOTE | 2018-11-19 20:28 | NUR ---
[address] RODRIGUEZ POST ABG DRAW. CHANGE PC TO 28CM INCREASE RR TO 18 INCREASE PEEP TO 6CM AND DRAW ABG IN AM
--- NOTE | 2018-11-19 21:58 | NUR ---
CALLED DR. ZAMORANO REGARDING HEPARIN 5000 UNITS SQ MEDICATION. REPORTED HGB OF 10.4, HCT 31.8, PLT 220, MODERATE BLOOD ON SPUTUM ON ET SUCTION, DR ZAMORANO SAID OK TO GIVE. MEDICATION GIVEN.
[2018-11-19] MEDS: fentaNYL 1 MG in NACL 0.9% 80 ML IV PRN (22:16)
--- NOTE | 2018-11-19 23:33 | NUR ---
2330 LOWERED FIO2 TO 90%. SATS 92%
[2018-11-19] MEDS: PROPOFOL 1000 MG/100 ML PREMIX 100 ML IV PRN (23:39)
[2018-11-20] VITALS (107 sets, daily range): BP systolic 103–137; BP diastolic 27–74
--- NOTE | 2018-11-20 01:31 | NUR ---
SPUTUM SAMPLE UPTAINED AND SENT TO LAB
--- NOTE | 2018-11-20 02:46 | NUR ---
PT AT BED, EYES CLOSED, BREATHING REGULARLY, ETT TO VENT, SIDE RAILS UP X2, HOB AT 30 DEGREES, CALL LIGHT WITHIN REACH, BED AT LOWEST POSITION.
--- NOTE | 2018-11-20 03:12 | NUR ---
PT AT BED, EYES CLOSED, BREATHING REGULARLY, ETT TO VENT, PERFORMED VAP ORAL CARE. PT TOLERATED PROCEDURE WELL. SIDE RAILS UP X2, HOB AT 30 DEGREES, CALL LIGHT WITHIN REACH, BED AT LOWEST POSITION.
[2018-11-20] MEDS: PROPOFOL 1000 MG/100 ML PREMIX 100 ML IV PRN ×6 (03:32→21:12)
[2018-11-20 05:25] LABS: HEMATOCRIT 30.7 % (36-48); HEMOGLOBIN 10.1 g/dL (12.0-16.0); LYMPHOCYTES # (AUTO) 0.7 K/uL (2.5-16.5); LYMPHOCYTES % (AUTO) 4.5 % (20.5-51.1); MEAN CORPUSCULAR HEMOGLOBIN 29 pg (27-31); MEAN CORPUSCULAR HGB CONC 33 g/dL (33-37); MEAN CORPUSCULAR VOLUME 89.4 fL (80-94); MONOCYTES # (AUTO) 0.9 K/uL (0.8-1.0); MONOCYTES % (AUTO) 5.8 % (1.7-9.3); NEUTROPHILS # (AUTO) 13.3 K/uL (1.8-7.7); PLATELET COUNT (AUTO) 206 K/uL (140-450); RED BLOOD CELL COUNT(AUTO) 3.43 MIL/uL (4.20-5.40); RED CELL DISTRIBUTION WIDTH 13.8 % (11.6-13.7); WHITE BLOOD COUNT (AUTO) 14.8 K/uL (4.8-10.8)
[2018-11-20 05:41] LABS: CARBON DIOXIDE 28.9 mmol/L (21-32); CREATININE 1.6 mg/dL (0.6-1.3); PHOSPHORUS 5.4 mg/dL (2.5-4.9); POTASSIUM 4.9 mmol/L (3.5-5.1)
[2018-11-20 05:52] LABS: NEUTROPHILS % (AUTO) 89.7 % (42.2-75.2)
[2018-11-20] MEDS: PIPERACILLIN/TAZOBACTAM 3.375 GM in DEXTROSE 5% 50 ML IV SCH ×3 (05:56→17:50)
[2018-11-20] MEDS: ALBUTEROL SULFATE/IPRATROPIU 3 ML SOL IH SCH ×3 (06:31→19:17)
--- NOTE | 2018-11-20 06:50 | NUR ---
PHONE CALL TO PATIENT'S NEXT OF KIN, GORDON TRAN, RESULTED TO WRONG NUMBER ACCORDING TO THE PERSON WHO RECEIVED THE CALL.
--- NOTE | 2018-11-20 07:24 | NUR ---
CHANGE OF SHIFT REPORT GIVEN TO AM NURSE RADHA. PT AT STABLE CONDITION AT THIS TIME.
--- NOTE | 2018-11-20 07:25 | NUR ---
RECEIVED BEDSIDE CHANGE OF SHIFT REPORT FROM PM NURSE. PATIENT'S VITALS ARE STABLE AND PATIENT'S DRY WEIGHT IS 116 KG AND IS SEDATED WTIH RASS -3 AND ON FENTANYL 58 MCG/H AND PROPOFOL 40 MCH/KG/MIN. PERRL PRESENT, HOWEVER PUPIL REACTION TO LIGHT IS SLUGISH. PATIENT HAS RIJ CENTRAL TRIPLE LUMEN CENTRAL LINE WITH ALL LUMENS PATENT AND DRESSING/INSERTION SITE IS DRY AND INTACT. IVF NORMAL SALINE RUNNING AT 10 ML/H. ETT SIZE 7.5 TO VENT WITH ETT 25CM AT TOOTH/GUM LINE. VENTILATOR MODE AC/PC; SETTINGS: FI02: 80%, INSPIRATORY PRESSURE: 28, RR: 18, AND PEEP OF 6. NSR ON DAM ATTENDANT. EUPNEIC RESPIRATIONS WITH SLIGHT BILATERAL UPPER LOBE EXPIRATORY WHEEZES AND DIMINISHED BILATERAL LOWER LOBE LUNG SOUNDS. SKIN WARM, DRY, AND INTACT EXCEPT FOR LEFT ELBOW OPEN SKIN WOUND. SEVERAL OLD SCARS NOTED ON EXTREMITIES. BILATERAL LOWER LEG 1+ PITTING EDEMA PRESENT. PATIENT HAS OG FEEDING TUBE RUNNING AT 10ML/H OF VITAL AF FORMULA AND WATER FLUSH OF 50CC Q4H. OG TUBE PLACEMENT AND PATENCY CONFIRMED, WITH NO RESIDUALS. PATIENT HAS BILATERAL WRIST RESTRAINTS. PHILIP CATHETER IN PLACE, PATENT AND WITH CLEAR JUDITH URINE. BED LEFT IN LOW POSITION, HOB AT 30 DEGREES, AND CALL LIGHT WITHIN REACH. WILL CONTINUE TO MONITOR PATIENT.
--- NOTE | 2018-11-20 08:05 | NUR ---
DR BUTTS AND THE MEDICAL RESIDENTS CAME IN THIS MORNING TO CHECK ON PATIENT. WILL CONTINUE TO FOLLOW DOCTOR'S ORDERS PRESCRIBED.
--- NOTE | 2018-11-20 08:18 | NUR ---
RAJESH REPORTED TO DR BOOGIE
--- NOTE | 2018-11-20 08:30 | NUR ---
RECEIVED PT ON CARESCAPE ON DOCUMENTED SETTINGS, ALARMS ARE ON AND AUDIBLE, PTS EET IS SECURE 23 [address] ANCH[address] FAST IN [address]ACE,BS DIMINISHED, PT IN HF ASLEEP, HHN GVIEN I\L WITH 3 MG DUONEB, BMV HOB, VENT PLUGGED INTO RED OUTLET
[2018-11-20] MEDS: PANTOPRAZOLE 40 MG INJ VIAL IVP SCH (08:58)
[2018-11-20] MEDS: FUROSEMIDE 20 MG/2 ML VIAL IVP SCH (08:58)
[2018-11-20] MEDS: FAMOTIDINE 20 MG TAB PO SCH (09:00)
[2018-11-20] MEDS: LORATADINE 10 MG TAB PO SCH (09:01)
[2018-11-20] MEDS: LACTOBACILLUS RHAMNOSUS GG 1 EACH CAP PO SCH (09:02)
[2018-11-20] MEDS: methylPREDNISolone SS 40 MG/ML VIAL IVP SCH (09:02)
--- NOTE | 2018-11-20 09:25 | NUR ---
RECEIVED A CALL FROM PT'S DAUGHTER, HARSHA PELAYO, UPDATES GIVEN ON PT'S CONDITION. PER HARSHA, SHE CANNOT COME AND VISIT TODAY, ADMISSION FORMS WILL BE SIGNED BY PT'S SIGNIFICANT OTHER, GORDON TRAN.
[2018-11-20] MEDS: NACL 0.9% 1,000 ML IV SCH (09:56)
--- NOTE | 2018-11-20 10:41 | NUR ---
PATIENT'S AT BEDSIDE. UPDATES GIVEN TO HIM ON PATIENT'S CONDITION. PATIENT'S VITALS SIGNS ARE STABLE AND NO SIGNS OF DISTRESS ARE NOTED AT THIS TIME.
--- NOTE | 2018-11-20 10:57 | NUR ---
DR. COTTON AT BEDSIDE, SPEAKING WITH PT'S .
--- NOTE | 2018-11-20 12:00 | NUR ---
TEMPERATURE TAKEN, ORAL CARE, KELL-CARE, AND REPOSITIONING OF PATIENT DONE. VITAL SIGNS ARE STABLE AND NO SIGNS OF DISTRESS ARE PRESENT AT THIS TIME.
[2018-11-20] MEDS: fentaNYL 1 MG in NACL 0.9% 80 ML IV PRN (12:19)
[2018-11-20] MEDS: THERAHONEY WOUND DRESSING TP SCH (12:21)
[2018-11-20] MEDS: FOAM DRESSING TP SCH ×2 (12:22→12:43)
--- NOTE | 2018-11-20 13:00 | NUR ---
WOUND CARE PERFORMED ORDERED, ON PATIENT'S LEFT ELBOW, AND DRESSING CHANGED. PATIENT TOLERATED WELL, AND NO SIGNS OF DISTRESS AT THIS TIME.
--- NOTE | 2018-11-20 14:30 | NUR ---
PER PHARMACISTMARCOS, DRY WEIGHT SHOULD BE THE FIRST WEIGHT WHEN PATIENT IS ADMITTED, WHICH IS 104 KG. RATE CORRECTION MADE AT THIS TIME BASED ON DRY WEIGHT 104 KG.
--- NOTE | 2018-11-20 16:00 | NUR ---
TEMPERATURE TAKEN, ORAL CARE, KELL-CARE, AND REPOSITIONING OF PATIENT DONE. VITAL SIGNS ARE STABLE AND NO SIGNS OF DISTRESS ARE PRESENT AT THIS TIME.
--- NOTE | 2018-11-20 16:20 | NUR ---
PT'S DAUGHTER HARSHA PELAYO AT BEDSIDE. PER HARSHA, OK TO GIVE UPDATES ON PT'S THREE OTHER CHILDREN: MICHAEL MARISCAL, JUSTICE SON, KALYANI HUYNH AND PT'S SISTER: MARINA KENNEDY. HARSHA PELAYO WILL MAKE DECISIONS AND SIGN CONSENT FORMS AT THIS TIME. ```````````````````````````````````````````````````````````````````````````````````````````` ```````````````````````````````````````````````````````````````````````````````````````````` ```````````````````````````````````````````````````````````````````````````````````````````` `````````
[2018-11-20] MEDS: CALCIUM ACETATE 667 MG TAB NG SCH (17:37)
--- NOTE | 2018-11-20 19:25 | NUR ---
CHANGE OF SHIFT BEDSIDE REPORT GIVEN TO PM NURSE. PATIENT IS STABLE WITH NO SIGNS OF DISTRESS.
--- NOTE | 2018-11-20 19:30 | NUR ---
RECEIVED REPORT FROM AM NURSE. PT ETT TO VENT WITH VENT MODE AC/PC ,FIO2 80 %,IP 28 AND PEEP 6. ETT SIZE NO 7.5 WITH 25 CM LIP LINE. NO S/S OF RESP DISTRESS, NO SOB. HOB UP 30-45 DEGREE ALL THE TIMES. PT IS SEDATED WITH PROPOFOL DRIP AT 40 MCG/KG/MIN WITH DRY WT IS 104 KG AND FENTANYL DRIP AT 58 MCG/HR. RASS -3. SR ON MONITOR. CENTRAL LINE TO RIGHT IJ TRIPLE LUMEN INTACT WELL.WITH IVF NS AT 10CC/HR.ABD SOFT NON DISTENDED.SKIN WARM TO TOUCH.OGT IN PLACE WITH GT FEEDING VITAL AF AT 10 CC/HR AND H20 FLUSH AT 50 CC Q 4HRS WITH NO RESIDUAL NOTED. F/C IN PLACE WITH YELLOW CLEAR URINE NOTED. KEPT CLEAN AND DRY.
--- NOTE | 2018-11-20 19:40 | NUR ---
COME TO SEE PT NO NEW ORDER.
--- NOTE | 2018-11-20 19:45 | NUR ---
RT REPORTING FIO2 DOWN FROM 80 TO 60%
--- NOTE | 2018-11-20 19:46 | NUR ---
PT FOUND ON CHARTED SETTINGS. TX GIVEN INLINE W/O ADVERSE EFFECT. AIRWAY PATENT AND SECURE. VENT PLUGGED INTO RED OUTLET. ALARMS SET APPROPRIATELY AND AUDIBLE. LOWERED FIO2 TO 60%. PT STABLE AT THIS TIME. WILL MONITOR.
--- NOTE | 2018-11-20 20:00 | NUR ---
MARC THE BOY FRIEND AT BED SIDE UP DATE PT CONDITION TO HIM.
--- NOTE | 2018-11-20 21:30 | NUR ---
COME TO SEE PT NEW ORDER GIVEN CLEOCIN AND LEVAQUIN ORDER .
[2018-11-20] MEDS ORDERED: LEVOFLOXACIN 500 MG/D5W PREMIX 100 ML IV SCH (22:00)
--- NOTE | 2018-11-20 23:45 | NUR ---
LEVAQUIN IV ABT GIVEN ORDER.
[2018-11-21] VITALS (107 sets, daily range): BP systolic 96–134; BP diastolic 49–82
[2018-11-21] MEDS: PROPOFOL 1000 MG/100 ML PREMIX 100 ML IV PRN ×7 (00:53→21:32)
[2018-11-21] MEDS: LORazepam 2 MG/ML VIAL IM/IVP PRN (01:44)
[2018-11-21] MEDS: FOAM DRESSING TP SCH ×2 (01:45→12:29)
--- NOTE | 2018-11-21 01:45 | NUR ---
PT RASS +2 PT IS AWAKE, FREQUENT NON PURPOSED MOVEMENT AND FIGHT VENTILATOR. INCREASE PROPOFOL DRIPS TO 45 MCG/KG/MIN. CONTINUE TO MONITOR CLOSELY
[2018-11-21] MEDS ORDERED: CLINDAMYCIN 900 MG/6 ML VIAL IV ONE (03:13)
[2018-11-21] MEDS: CLINDAMYCIN 900 MG in DEXTROSE 5% 100 ML IV SCH ×3 (04:00→20:36)
--- NOTE | 2018-11-21 04:00 | NUR ---
AM CARE GIVEN ,SPONGE BATH, ORAL CARE AN F/C CARE.
[2018-11-21] MEDS: NACL 0.9% 1,000 ML IV SCH (05:15)
--- NOTE | 2018-11-21 05:30 | NUR ---
AM MEDS GIVEN
[2018-11-21] MEDS: ALBUTEROL SULFATE/IPRATROPIU 3 ML SOL IH SCH ×3 (06:32→19:39)
--- NOTE | 2018-11-21 06:32 | NUR ---
REC'D PT ON CARESCAPE VENT SETTINGSPC 28 RR 18 ITIME 1.2 PEEP 6 FIO2 60% ALARMS ON AND AUDIBLE AND AMBU BAG AT SIDE OF VENT AND VENT IS PLUGGED INTO RED OUTLET, I\L TX GIVEN WITH DUONEB 3ML WITH NO ADVERSE REACTION POST TX B\S ARE RHONCHI BILATERALLY, SXN MODERATE AMT OF THICK YELLOW SECRETIONS, PT IS ORALLY INTUBATED WITH 7.5 ET TUBE SECURED WITH ANCHOR FAST AT 23CM AND SKIN INTEGRITY IS INTACT PT IS RESTING
[2018-11-21 06:35] LABS: HEMOGLOBIN 9.8 g/dL (12.0-16.0); MEAN CORPUSCULAR HEMOGLOBIN 30 pg (27-31); MEAN CORPUSCULAR HGB CONC 34 g/dL (33-37); MEAN CORPUSCULAR VOLUME 88.7 fL (80-94); PLATELET COUNT (AUTO) 194 K/uL (140-450); RED BLOOD CELL COUNT(AUTO) 3.27 MIL/uL (4.20-5.40); RED CELL DISTRIBUTION WIDTH 13.6 % (11.6-13.7); WHITE BLOOD COUNT (AUTO) 11.2 K/uL (4.8-10.8)
[2018-11-21 06:39] LABS: ANION GAP 11.4 (8-16); CREATININE 0.9 mg/dL (0.6-1.3); POTASSIUM 4.4 mmol/L (3.5-5.1)
[2018-11-21 06:44] LABS: MAGNESIUM 2.6 mg/dL (1.8-2.4); PHOSPHORUS 3.4 mg/dL (2.5-4.9)
--- NOTE | 2018-11-21 07:30 | NUR ---
RECEIVED BEDSIDE REPORT FROM SOCIAL MEDIA DIRECTOR RN. PT IS SEDATED. RASS -3 AT THIS TIME. PERRL. AFEBRILE, FLACC 0. NORMAL SINUS RHYTHM ON MONITOR. S1 S2 HEARD. ETT TO VENT W/ SETTINGS: AC/PC 18, FIO2 60%, P INSP 28, PEEP 6. BREATHING EVEN AND UNLABORED. INSPIRATORY BREATH SOUNDS CLEAR, EXPIRATORY WHEEZES HEARD TO RIGHT UPPER LOBE. OGT TO PLACE, PLACEMENT CONFIRMED, NO RESIDUALS. PT IS RECEIVING VITAL AF AT 10 ML/HR WITH WATER FLUSH 50 ML Q4H. ABDOMEN SOFT, ROUND NONTENDER W/ ACTIVE BOWEL SOUNDS. CENTRAL LINE TLC TO RIJ PATENT AND INTACT, RUNNING PROPOFOL DRIP AT 45 MCG/KG/MIN (DRY WEIGHT 104 KG), FENTANYL AT 52 MCG/HR, IV FLUID NS AT 10 ML/HR. PHILIP CATH IN PLACE DRAINING CLEAR YELLOW URINE TO GRAVITY. SKIN IS DRY AND WARM TO TOUCH, OPEN WOUND TO LEFT ELBOW NOTED. MULTIPLE OLD SKIN GRAFTS NOTED TO BUE/BLE. BED IN LOWEST POSITION LOCKED, HOB AT 30 DEGREES, CALL LIGHT WITHIN REACH. NO SINGS OF DISTRESS NOTED AT THIS TIME. WILL CONTINUE TO MONITOR.
[2018-11-21 07:35] LABS: BASOPHILS % (MANUAL) 0 % (0-2); EOSINOPHILS % (MANUAL) 0 % (0-4); LYMPHOCYTES % (MANUAL) 6 % (20-46); MONOCYTES % (MANUAL) 4 % (5-12)
--- NOTE | 2018-11-21 07:46 | NUR ---
DR. BUTTS AND RESIDENT GROUP IN TO SEE PT. WILL FOLLOW UP ON ORDERS.
--- NOTE | 2018-11-21 08:10 | NUR ---
SUPERVISOR PAPER TESTING AT BEDSIDE FOR BLLE ARTERIAL US. PT RASS -3 BUT REFUSED ULTRASOUND TO BE TAKEN BY SHAKING HEAD AND LEGS AT THIS TIME. CHARGE NURSE AWARE.
[2018-11-21] MEDS: CALCIUM ACETATE 667 MG TAB NG SCH ×2 (08:22→16:35)
[2018-11-21] MEDS: FUROSEMIDE 20 MG/2 ML VIAL IVP SCH (08:23)
[2018-11-21] MEDS: methylPREDNISolone SS 40 MG/ML VIAL IVP SCH (08:23)
[2018-11-21] MEDS: PANTOPRAZOLE 40 MG INJ VIAL IVP SCH (08:23)
[2018-11-21] MEDS: FAMOTIDINE 20 MG TAB PO SCH (08:23)
[2018-11-21] MEDS: LACTOBACILLUS RHAMNOSUS GG 1 EACH CAP PO SCH (08:23)
[2018-11-21] MEDS: LORATADINE 10 MG TAB PO SCH (08:23)
[2018-11-21] MEDS ORDERED: DOCUSATE 100 MG/10 ML UDC PO PRN (08:40)
--- NOTE | 2018-11-21 08:42 | NUR ---
MEDICATIONS ADMINISTERED ORDERED. PT TOLERATED WELL.
[2018-11-21] MEDS ORDERED: BISACODYL 10 MG SUPP RC SCH (09:00)
[2018-11-21] MEDS: SENNA 8.6 MG TAB PO SCH (09:19)
[2018-11-21] MEDS: fentaNYL 1 MG in NACL 0.9% 80 ML IV PRN ×2 (09:20→21:39)
--- NOTE | 2018-11-21 11:09 | NUR ---
PT'S DAUGHTER, HARSHA, AND BOYFRIEND, MARC AT BEDSIDE. UPDATES GIVEN ON PT'S CONDITION. PT IS NOT IN ANY DISTRESS AT THIS TIME. VSS.
--- NOTE | 2018-11-21 11:39 | NUR ---
HEALTH CARE SOCIAL WORKER, LUCIA, AT BEDSIDE, WELL PT'S DAUGHTER AND BOYFRIEND. EXPLAINED AND EDUCATION GIVEN ON THE PURPOSE OF ARTERIAL ULTRASOUND OF THE LEGS, PT STILL REFUSED ULTRASOUND TO BE TAKEN AT THIS TIME.
[2018-11-21] MEDS: THERAHONEY WOUND DRESSING TP SCH (12:29)
--- NOTE | 2018-11-21 13:15 | NUR ---
THE DAUGHTER HARSHA [phone] GIVE 3 NAME THAT AUTHORIZE TO HAVE PATIENT INFORMATION LISA.
--- NOTE | 2018-11-21 13:25 | NUR ---
PT AGREED TO HAVE BLE ARTERIAL ULTRASOUND DONE. ELEMENT WINDING MACHINE TENDER AND FAMILY AT BEDSIDE. VSS. RASS -3. NO SIGNS OF DISTRESS NOTED AT THIS TIME. WILL CONTINUE TO MONITOR.
--- NOTE | 2018-11-21 15:55 | NUR ---
VAP ORAL CARE GIVEN, TURNED AND REPOSITIONED FOR COMFORT AND OFF LOADING PRESSURE AREAS. VSS. SAFETY MEASURES ENSURED. WILL CONTINUE TO MONITOR.
--- NOTE | 2018-11-21 18:10 | NUR ---
NO CHANGE IN CONDITION AT THIS TIME. TURNED AND REPOSITIONED. PT TOLERATED WELL. PT IS NOT IN ANY DISTRESS AT THIS TIME.
--- NOTE | 2018-11-21 19:27 | NUR ---
REPORT GIVEN TO PROJECTOR BOOTH OPERATOR RN FOR CONTINUITY OF CARE. PT IS IN STABLE CONDITION.
--- NOTE | 2018-11-21 19:30 | NUR ---
RECEIVED REPORT FROM AM NURSE. INITIAL ASSESSMENT COMPLETED. AWAKE, PT REORIENTED OF THE ENVIRONMENT. PT IS ON ETT TO VENT, PC CONTROL FIO2 60% P INSP 28 RATE 18 PEEP 6. ATTACHED TO PRODUCTION CELL LEADER, PULSE OXIMETER. ON OGT FEEDING, PATENT, INTACT. IV ACCESS RIGHT IJ TLC, PATENT, INTACT, INFUSING WELL, ON PROPOFOL AND FENTANYL DRIP. RASS -3, DW 104 KG. ON SOFT WRIST RESTRAINTS ORDERED. PHILIP CATH INTACT. BED IN LOW POSITION, SAFETY MEASURE ENSURE, WILL CONTINUE TO MONITOR.
[2018-11-21] MEDS: LEVOFLOXACIN 500 MG/D5W PREMIX 100 ML IV SCH (21:32)
--- NOTE | 2018-11-21 21:45 | NUR ---
DR. NIETO AT BEDSIDE. UPDATED OF PATIENT'S CONDITION. NO NEW ORDERS AT THIS TIME.
[2018-11-22] VITALS (107 sets, daily range): BP systolic 88–168; BP diastolic 20–78
[2018-11-22] MEDS: FOAM DRESSING TP SCH ×2 (01:16→12:43)
[2018-11-22] MEDS: PROPOFOL 1000 MG/100 ML PREMIX 100 ML IV PRN ×6 (02:08→21:59)
--- NOTE | 2018-11-22 02:30 | NUR ---
PT ASLEEP AT THIS TIME. WILL CONTINUE TO MONITOR.
--- NOTE | 2018-11-22 04:40 | NUR ---
DR. ZAMORANO NOTIFIED OF PATIENT FROTHY SPUTUM, PT STARTED BECOMING RESTLESS. PT STARETED TO COUGH OUT HER ET TUBE AND WANTS IT REMOVE. PT REORIENTED. DR. ZAMORANO AT BEDSIDE. NO NEW ORDERS AT THIS TIME. WILL CONTINUE TO MONITOR.
[2018-11-22] MEDS: CLINDAMYCIN 900 MG in DEXTROSE 5% 100 ML IV SCH ×3 (05:33→21:10)
[2018-11-22] MEDS: ALBUTEROL SULFATE/IPRATROPIU 3 ML SOL IH SCH ×3 (06:44→19:21)
--- NOTE | 2018-11-22 06:45 | NUR ---
RECEIVED PT ON CARESCAPE ON DOCUMENTED SETTINGS, ALARMS ARE ON AND AUDIBLE, PTS ETT IS SECURE 23 CM, ANCHOR FAST IN PLACE, BS COARSE, PT IN HF QUIET , HHN GIVEN I\L WITH 3 MG DUONEB, BMV HOB, VENT PLUGGED INTO RED OUTLET
[2018-11-22 07:17] LABS: ANION GAP 10.2 (8-16); CARBON DIOXIDE 33.3 mmol/L (21-32); CREATININE 0.7 mg/dL (0.6-1.3); POTASSIUM 4.5 mmol/L (3.5-5.1)
[2018-11-22 07:19] LABS: EOSINOPHILS % (AUTO) 0.4 % (0.0-4.0); HEMATOCRIT 31.1 % (36-48); HEMOGLOBIN 10.2 g/dL (12.0-16.0); LYMPHOCYTES # (AUTO) 1.1 K/uL (2.5-16.5); LYMPHOCYTES % (AUTO) 9.3 % (20.5-51.1); MEAN CORPUSCULAR HEMOGLOBIN 29 pg (27-31); MEAN CORPUSCULAR HGB CONC 33 g/dL (33-37); MEAN CORPUSCULAR VOLUME 89.1 fL (80-94); MONOCYTES # (AUTO) 0.8 K/uL (0.8-1.0); MONOCYTES % (AUTO) 6.6 % (1.7-9.3); NEUTROPHILS # (AUTO) 10.1 K/uL (1.8-7.7); NEUTROPHILS % (AUTO) 83.7 % (42.2-75.2); PLATELET COUNT (AUTO) 220 K/uL (140-450); RED BLOOD CELL COUNT(AUTO) 3.49 MIL/uL (4.20-5.40); RED CELL DISTRIBUTION WIDTH 13.5 % (11.6-13.7)
[2018-11-22 07:23] LABS: MAGNESIUM 2.1 mg/dL (1.8-2.4); PHOSPHORUS 2.9 mg/dL (2.5-4.9)
--- NOTE | 2018-11-22 07:30 | NUR ---
RECEIVED REPORT FROM LOCKSTITCH WAISTBAND SETTER NURSE. PT IS ETT TO VENT, PRESSURE CONTROL 28, FIO2 60%, RR 18, PEEP 6. PT IS ABLE TO OPEN EYES BUT NO EYE CONTACT. PT ON SOFT RESTRAINTS BECAUSE PT TRIES TO REMOVE TUBES. RASS -3. SR ON MARKETING DESIGNER. RIGHT IJ RUNNING PROPOFOL 45MCG/KG/MIN, DRY WEIGHT 104KG, FENTANYL 104MCG/HR. OGT FEEDING, VITAL AF RUNNING AT 10ML/HR. PHILIP CATH IN PLACE DRAINING CLEAR YELLOW URINE WITH SEDIMENTS. LEFT ELBOW DRESSING NOTED, DRY AND INTACT. BED IN LOWEST POSITION, SAFETY MEASURE IN PLACE, WILL CONTINUE TO MONITOR.
--- NOTE | 2018-11-22 07:30 | NUR ---
REPORT GIVEN TO AM NURSE FOR CONTINUITY OF CARE.
--- NOTE | 2018-11-22 08:30 | NUR ---
OGT AUSCULTATED, POSITIVE PLACEMENT. SCHEDULED MEDS GIVEN VIA OGT.
[2018-11-22] MEDS: CALCIUM ACETATE 667 MG TAB NG SCH ×2 (08:43→16:35)
[2018-11-22] MEDS: LACTOBACILLUS RHAMNOSUS GG 1 EACH CAP PO SCH (08:44)
[2018-11-22] MEDS: LORATADINE 10 MG TAB PO SCH (08:44)
[2018-11-22] MEDS: FAMOTIDINE 20 MG TAB PO SCH (08:44)
[2018-11-22] MEDS: SENNA 8.6 MG TAB PO SCH (08:45)
[2018-11-22] MEDS: PANTOPRAZOLE 40 MG INJ VIAL IVP SCH (08:45)
[2018-11-22] MEDS: FUROSEMIDE 20 MG/2 ML VIAL IVP SCH (08:45)
[2018-11-22] MEDS: methylPREDNISolone SS 40 MG/ML VIAL IVP SCH (08:45)
--- NOTE | 2018-11-22 09:00 | NUR ---
INCREASE TUBE FEEDING RATE TO 30ML/HR.
[2018-11-22] MEDS: fentaNYL 1 MG in NACL 0.9% 80 ML IV PRN ×2 (10:55→21:58)
--- NOTE | 2018-11-22 11:14 | NUR ---
PER DOCTOR MARYCRUZ REQUEST RIGHT AND LEFT ELBOWS PARTIAL THICKNESS LOSS OF SKIN ASSESSED OLD SKIN JUAN SCARS, WOUND BED 100 % RED, AREAS ARE CLEAN NO S/S OF INFECTION,KELL-WOUND SKIN INTACT, RECOMMEND TO CLEANSE WITH NS. PAT DRY, APPLY HYDROGEL AND COVER WITH DRY DRESSING QD AND PRN IF SOILING. dR. JOEL NOTIFIED OF RECOMMENDATION
--- NOTE | 2018-11-22 12:30 | NUR ---
0ML RESIDUAL. INCREASED TUBE FEEDING TO 60ML/HR. Addendum: 11/22/18 at 1314 by Judd Ferrara RN WATER FLUSH 140ML, Q6H
[2018-11-22] MEDS: SKINTEGRITY HYDROGEL TP SCH (12:43)
--- NOTE | 2018-11-22 13:32 | NUR ---
DECREASE FIO2 TO 50 SPO2 92
--- NOTE | 2018-11-22 16:11 | NUR ---
11/22/18 RD FOLLOW UP COMPLETED PLEASE REFER TO NUTRITION ASSESSMENT UNDER CARE ACTIVITY FOR ESTIMATED NUTRITIONAL NEEDS. 1. CONTINUE VITAL @ 60 ML/HR -THIS WILL PROVIDE 1440 ML OF VOLUME, 1728 KCAL, AND 108 GM OF PROTEIN, WHICH MEETS 100% OF ESTIMATED NEEDS 2. CONTINUE FREE WATER FLUSH OF 140 ML Q6H 3. WHEN PATIENT IS MEDICALLY STABLE CONSIDER SWALLOW EVALUATION WITH RECOMMENDED FOOD TEXTURES AND CARDIAC DIET. 4. RD WILL FOLLOW UP WITHIN 2-3 DAYS, HIGH RISK PATRICE DUNN RD
--- NOTE | 2018-11-22 16:20 | NUR ---
CALLED RESIDENT MD JOEL, LAURA 2.9, IF SHE STILL WANT TO CONTINUE PHOSLO, SHE SAID SHE WILL DC IT.
[2018-11-22] MEDS: NACL 0.9% 1,000 ML IV SCH (16:58)
--- NOTE | 2018-11-22 18:30 | NUR ---
PT DENIES ANY SOB, PT STATED HE DOES NOT FEEL ANYTHING DIFFERENT. PAIN IMPROVED AFTER THE DILAUDID. Addendum: 11/23/18 at 4183 by Judd Ferrara RN PLEASE DISCARD, WRONG PT.
--- NOTE | 2018-11-22 19:30 | NUR ---
RECEIVED BEDSIDE REPORT FROM MORNING SHIFT RN. VSS, TEMP 97.8, BP 105/61, RR 26, SATING 97%, HR 69. SR ON SENIOR RESEARCH FELLOW. ETT TO VENT, AC PC MODE, FIO2=50%, PINSP 28% RR 18, TINSP 1.2, PEEP 6, PMAX 50. RT ISHMAEL AT BEDSIDE TO SEE PATIENT, SUCTION, VAP ORAL CARE PROVIDED. LUNG SOUND RHONCHI/COARSE ON BILATERAL UPPER AND LOWER LOBES. OGT IN PLACE, VITAL SAF AT 60CC/HR. BOWEL SOUNDS ACTIVE X4. PHILIP IN PLACE, URINE IS JUDITH IN COLOR. PT HAS RIGHT IJ CENTRAL LINE IN PLACE WITH FENTANLY AT 10.4ML/HR, PROPOFOL AT 45MCG/MIN, NS AT 10CC/HR. PT SKIN NORMAL IN COLOR, HYDROGEL ON BILATERAL ELBOWS, OPEN SKIN COVERED WITH DRESSING. SKIN GRAFT/SCALY SKIN NOTED ON UPPER AND LOWER EXTREMITY. ALLERGY TO FLU VACCINE NOTED ON BAND. DRY WEIGHT OF 104KG NOTED FOR PROPOFOL DRIP. RASS -3 MAINTAINED.
--- NOTE | 2018-11-22 19:30 | NUR ---
RECEIVED BEDSIDE REPORT FROM MORNING SHIFT RN, WEIGHT. VSS, TEMP 97.8, BP 105/61, RR 26, SATING 97%, HR 69. SR ON BEAUTY OPERATOR APPRENTICE. ETT TO VENT, AC PC MODE, FIO2=50%, PINSP 28% RR 18, TINSP 1.2, PEEP 6, PMAX 50. RT ISHMAEL AT BEDSIDE TO SEE PATIENT, SUCTION, VAP ORAL CARE PROVIDED. LUNG SOUND RHONCHI/COARSE ON BILATERAL UPPER AND LOWER LOBES. OGT IN PLACE, VITAL SAF AT 60CC/HR. BOWEL SOUNDS ACTIVE X4. PHILIP IN PLACE, URINE IS JUDITH IN COLOR. PT HAS RIGHT IJ CENTRAL LINE IN PLACE WITH FENTANLY AT 10.4ML/HR, PROPOFOL AT 45MCG/MIN, NS AT 10CC/HR. PT SKIN NORMAL IN COLOR, HYDROGEL ON BILATERAL ELBOWS, OPEN SKIN COVERED WITH DRESSING. SKIN GRAFT/SCALY SKIN NOTED ON UPPER AND LOWER EXTREMITY. ALLERGY TO FLU VACCINE NOTED ON BAND. DRY WEIGHT OF 104KG NOTED FOR PROPOFOL DRIP. RASS -3 MAINTAINED. Addendum: 11/22/18 at 2313 by Jessica Gonzalez RN NOTE WAS WRITTEN BY JESSICA RAPP.
[2018-11-22] MEDS ORDERED: FLUCONAZOLE 200 MG/NS PREMIX 100 ML IV SCH (19:55)
--- NOTE | 2018-11-22 20:55 | NUR ---
PT FAMILY FRIEND AT BEDSIDE TO SEE PATIENT.
[2018-11-22] MEDS: LEVOFLOXACIN 500 MG/D5W PREMIX 100 ML IV SCH (21:09)
--- NOTE | 2018-11-22 23:05 | NUR ---
DR. LOCO IN TO SEE PATIENT, NO NEW ORDERS AT THIS TIME.
[2018-11-23] VITALS (105 sets, daily range): BP systolic 94–153; BP diastolic 50–85
--- NOTE | 2018-11-23 00:33 | NUR ---
VAP ORAL CARE PROVIDED, PT REPOSITIONED, VSS. WHITE ORAL SECRETIONS NOTED, ORAL SUCTIONING PROVIDED. NO BM AT THIS TIME, URINE REMAINS JUDITH IN COLOR. HOB ABOVE 30 DEG.
[2018-11-23] MEDS: PROPOFOL 1000 MG/100 ML PREMIX 100 ML IV PRN ×5 (01:05→22:27)
[2018-11-23] MEDS: FOAM DRESSING TP SCH ×2 (01:05→13:28)
--- NOTE | 2018-11-23 04:30 | NUR ---
AM CARES PROVIDED TO PATIENT, MAXIMUM ASSIST X2. PT BECOMES MORE AGITATED UPON REPOSITIONING, FENTANLY AT 10.4ML/HR AND PROPOFOL AT 28.08ML/HR MAINTAINED A RASS -3.
[2018-11-23] MEDS: CLINDAMYCIN 900 MG in DEXTROSE 5% 100 ML IV SCH ×3 (04:35→20:26)
--- NOTE | 2018-11-23 05:54 | NUR ---
UPDATED DR. BRIAN DR TO RENEW RESTRAINT ORDER.
[2018-11-23 06:19] LABS: CREATININE 0.6 mg/dL (0.6-1.3)
[2018-11-23] MEDS: ALBUTEROL SULFATE/IPRATROPIU 3 ML SOL IH SCH ×3 (06:20→18:56)
--- NOTE | 2018-11-23 06:20 | NUR ---
rec'd pt on carescape vent settings pc 28 rr 18 itime 1.2 peep 6 fio2 50% alarms on and audible and ambu bag at side of vent and vent is plugged into red outlet, i\l tx given with duoneb 3ml with no adverse reaction post tx b\sare rhonchi bilaterally, sxn pt moderated amt of thick yellow secretions, pt is orally intubated with 7.5 et tube secured with anchor fast at 23 cm at midline and skin integrity is intact pt is resting
--- NOTE | 2018-11-23 06:25 | NUR ---
DR. JOEL IN TO SEE PATIENT.
[2018-11-23 06:26] LABS: ANION GAP 7.2 (8-16); POTASSIUM 4.2 mmol/L (3.5-5.1)
[2018-11-23 06:28] LABS: PHOSPHORUS 3.3 mg/dL (2.5-4.9)
[2018-11-23 06:46] LABS: BASOPHILS % (AUTO) 0.2 % (0.0-2.0); EOSINOPHILS # (AUTO) 0.2 K/uL (0-0.4); EOSINOPHILS % (AUTO) 2.3 % (0.0-4.0); HEMATOCRIT 30.9 % (36-48); HEMOGLOBIN 10.3 g/dL (12.0-16.0); LYMPHOCYTES # (AUTO) 1.4 K/uL (2.5-16.5); LYMPHOCYTES % (AUTO) 13.7 % (20.5-51.1); MEAN CORPUSCULAR HEMOGLOBIN 30 pg (27-31); MEAN CORPUSCULAR HGB CONC 34 g/dL (33-37); MEAN CORPUSCULAR VOLUME 89.7 fL (80-94); MONOCYTES # (AUTO) 0.7 K/uL (0.8-1.0); MONOCYTES % (AUTO) 7.4 % (1.7-9.3); NEUTROPHILS # (AUTO) 7.6 K/uL (1.8-7.7); NEUTROPHILS % (AUTO) 76.4 % (42.2-75.2); PLATELET COUNT (AUTO) 230 K/uL (140-450); RED BLOOD CELL COUNT(AUTO) 3.45 MIL/uL (4.20-5.40); RED CELL DISTRIBUTION WIDTH 13.5 % (11.6-13.7); WHITE BLOOD COUNT (AUTO) 9.9 K/uL (4.8-10.8)
--- NOTE | 2018-11-23 07:06 | NUR ---
GAVE BEDSIDE REPORT TO MORNING SHIFT RNMALA.
--- NOTE | 2018-11-23 07:15 | NUR ---
RECEIVED REPORT FROM FIGHTER PILOT NURSELUKE. PT IS ETT TO VENT, LIP LINE 25CM, AC/PC, PRESSURE CONTROL 28MMHG, FIO2 50%, RR 18, PEEP 6. PT IS ABLE TO OPEN EYES SPONTANEOUSLY BUT NO EYE CONTACT. PT ON SOFT WRIST RESTRAINTS BECAUSE PT TRIES TO REMOVE TUBES. BILATERAL CAP REFILL <3 SECS, RASS -3. SR/SB ON INCIDENT ENGINEER. RIGHT IJ RUNNING PROPOFOL 45MCG/KG/MIN, DRY WEIGHT 104KG, FENTANYL 104MCG/HR. OGT FEEDING, VITAL AF RUNNING AT 60ML/HR. PHILIP CATH IN PLACE DRAINING CLEAR YELLOW URINE. LEFT ELBOW DRESSING NOTED, DRY AND INTACT. BED IN LOWEST POSITION, SAFETY MEASURE IN PLACE, WILL CONTINUE TO MONITOR.
--- NOTE | 2018-11-23 07:40 | NUR ---
ORAL CARE AND PHILIP CARE DONE.
[2018-11-23] MEDS: fentaNYL 1 MG in NACL 0.9% 80 ML IV PRN ×2 (07:51→18:45)
[2018-11-23] MEDS: methylPREDNISolone SS 40 MG/ML VIAL IVP SCH (08:14)
[2018-11-23] MEDS: FUROSEMIDE 20 MG/2 ML VIAL IVP SCH (08:15)
[2018-11-23] MEDS: PANTOPRAZOLE 40 MG INJ VIAL IVP SCH (08:15)
[2018-11-23] MEDS: SENNA 8.6 MG TAB PO SCH (08:15)
[2018-11-23] MEDS: LACTOBACILLUS RHAMNOSUS GG 1 EACH CAP PO SCH (08:15)
[2018-11-23] MEDS: LORATADINE 10 MG TAB PO SCH (08:15)
[2018-11-23] MEDS: FAMOTIDINE 20 MG TAB PO SCH (08:15)
--- NOTE | 2018-11-23 08:50 | NUR ---
OGT AUSCULTATED, POSITIVE PLACEMENT. SCHEDULED MEDS GIVEN VIA OGT.
--- NOTE | 2018-11-23 10:45 | NUR ---
PT IS AWAKEN BY HER , PT AGITATED, KICKING HER LEGS. TURN UP PROPOFOL TO 50MCG/KG/HR.
--- NOTE | 2018-11-23 10:53 | NUR ---
SW attempted to conduct assessment with patient but patient was intubated. Per nursing staff, patient was sedated. SW will attempt to conduct assessment with patient at a later time.
[2018-11-23] MEDS: SKINTEGRITY HYDROGEL TP SCH (13:28)
--- NOTE | 2018-11-23 17:15 | NUR ---
DECREASED PROPOFOL TO 40MCG, PER DR ELIAS'S ORDER. GOAL IS 20MCG/KG/HR AND CPAP TRIAL TOMORROW.
[2018-11-23] MEDS: ONDANSETRON 4 MG/2 ML VIAL IM/IVP PRN (17:46)
[2018-11-23] MEDS: LORazepam 2 MG/ML VIAL IM/IVP PRN (18:30)
--- NOTE | 2018-11-23 18:30 | NUR ---
PT AWAKE, COUGHING AND AGITATED, TRYING TO REMOVE HER SOFT WRIST RESTRAINTS. ATIVAN GIVEN.
[2018-11-23] MEDS: NACL 0.9% 1,000 ML IV SCH (18:45)
--- NOTE | 2018-11-23 19:14 | NUR ---
Received pt stable on vent support at documented settings, suctioned small amount of thin clear secretions, hhn tx given, tolerated well, no resp distress or SOB noted at this time, 7.5 ETT secured at 23 cm at the lip, alarms set and audible, ambu bag at bedside, vent plugged into red outlet, cont pulse ox on, will cont to monitor.
--- NOTE | 2018-11-23 19:20 | NUR ---
RECEIVED BEDSIDE REPORT FROM MORNING SHIFT RNMALA. SB-SR ON RECORDS SUPERVISOR. BP 110/56, HR 57-60, RR 14, TEMPORAL 97.8, SATING 95%. LUNG SOUNDS MILDLY COARSE ON UPPER LOBER BILATERAL LOBES, PT HAS THICK, MINIMAL SECRETIONS. ON ETT TO VENT, AC PC MODE FIO2=50, RR 18, FLOW 50, Pinsp 28, Tinsp-1.0, Peep 6. BOWEL SOUNDS ACTIVE X4 QUADRANTS, NO BM AT THIS TIME. PT HAS OGT WITH TUBE FEEDINGS VITALS AT AT 60CC/HR, NO RESIDUAL. PHILIP CATH IN PLACE, URINE IS JUDITH IN COLOR. PT HAS RIGHT IJ CENTRAL LINE INFUSING FENTANYL AT 10.4ML/HR, PROPOFOL AT 40MCG/MIN, AND NS AT 10CC/HR. SKIN IS DRY/NORMAL IN COLOR. PT HAS WOUND ON RIGHT AND LEFT ELBOW. HOB ELEVATED ABOVE 30 DEG, STANDARD PRECAUTIONS, MAINTAINED. DRY WEIGHT FOR PROPOFOL AT 104KG.
--- NOTE | 2018-11-23 20:10 | NUR ---
PT FAMILY AT BEDSIDE TO SEE PATIENT, VAP ORAL CARE PROVIDED. REPOSITIONED PATIENT, MAX ASSIST X 2-3. HOB ABOVE 40 DEG, LEGS ELEVATED, ON BILATERAL WRIST RESTRAINTS.
[2018-11-23] MEDS: LEVOFLOXACIN 500 MG/D5W PREMIX 100 ML IV SCH (20:26)
--- NOTE | 2018-11-23 23:30 | NUR ---
PT OPENS EYES SPONTANEOUSLY AND ABLE WAS ABLE TO NOD OR SHAKE HEAD TO COMMANDS, DENIES PAIN/NAUSEA/DISCOMFORT AT THIS TIME. SEDATION WAS TITRATED UP TO MAINTAIN RASS -3. PT AT TIMES PULLING ON RESTRAINTS AND TWISTING BODY IN THE BED. NO BM AT THIS TIME, URINE IN PHILIP CATHETER IN JUDITH IN COLOR. NO SIGNS ON SKIN TEAR/IRRITATION AT SITE OF SOFT RESTRAINTS.
[2018-11-24] VITALS (107 sets, daily range): BP systolic 82–150; BP diastolic 31–99
[2018-11-24] MEDS: FOAM DRESSING TP SCH ×2 (01:32→13:54)
--- NOTE | 2018-11-24 03:00 | NUR ---
PT REPOSITIONED, VAP ORAL CARE PROVIDED, SUCTIONING PROVIDED X2, [place]/WHITE COLOR SPUTUM NOTED ON ORAL/MOUTH SUCTIONING.
[2018-11-24] MEDS: CLINDAMYCIN 900 MG in DEXTROSE 5% 100 ML IV SCH ×3 (04:41→20:20)
[2018-11-24 06:13] LABS: BASOPHILS % (AUTO) 0.1 % (0.0-2.0); EOSINOPHILS # (AUTO) 0.2 K/uL (0-0.4); EOSINOPHILS % (AUTO) 2.6 % (0.0-4.0); HEMATOCRIT 30.2 % (36-48); HEMOGLOBIN 10.1 g/dL (12.0-16.0); LYMPHOCYTES # (AUTO) 1.2 K/uL (2.5-16.5); LYMPHOCYTES % (AUTO) 13.7 % (20.5-51.1); MEAN CORPUSCULAR HEMOGLOBIN 30 pg (27-31); MEAN CORPUSCULAR HGB CONC 34 g/dL (33-37); MEAN CORPUSCULAR VOLUME 89.2 fL (80-94); MONOCYTES # (AUTO) 0.7 K/uL (0.8-1.0); MONOCYTES % (AUTO) 7.4 % (1.7-9.3); NEUTROPHILS # (AUTO) 6.8 K/uL (1.8-7.7); NEUTROPHILS % (AUTO) 76.2 % (42.2-75.2); PLATELET COUNT (AUTO) 237 K/uL (140-450); RED BLOOD CELL COUNT(AUTO) 3.39 MIL/uL (4.20-5.40); RED CELL DISTRIBUTION WIDTH 13.5 % (11.6-13.7); WHITE BLOOD COUNT (AUTO) 8.9 K/uL (4.8-10.8)
[2018-11-24] MEDS: fentaNYL 1 MG in NACL 0.9% 80 ML IV PRN ×2 (06:28→16:20)
--- NOTE | 2018-11-24 06:31 | NUR ---
DR. JOEL IN TO SEE PATIENT, UPDATED ON CONDITOINS, DISCUSSED PLAN TO WEAN PATIENT OFF THIS AM PER DR ELIAS ORDER. START WEAN OFF SEDATION AT 0800 TO START WEAN AT 0900. Addendum: 11/24/18 at 0738 by Jessica Gonzalez RN DR JOEL TO UPDATE RESTRAINT ORDER
[2018-11-24 07:05] LABS: ANION GAP 8.8 (8-16); CARBON DIOXIDE 36.5 mmol/L (21-32); CREATININE 0.5 mg/dL (0.6-1.3); POTASSIUM 4.3 mmol/L (3.5-5.1)
[2018-11-24] MEDS: ALBUTEROL SULFATE/IPRATROPIU 3 ML SOL IH SCH ×3 (07:05→19:52)
--- NOTE | 2018-11-24 07:06 | NUR ---
RCV'D PT ON MECHANICAL VENTILATOR WITH CHARTED SETTINGS. AIRWAY IS IN PLACE AND SECURED. PT INTUBATED WITH 7.5 ETT AT 23. VENT IS CONNECTED TO RED OUTLET. ALARMS AUDIBLE. AMBU BAG AT BEDSIDE. HHN TX GIVEN WITH NO ADVERSE REACTION. NO SOB OR DISTRESS NOTED. WILL CONTINUE TO MONITOR.
[2018-11-24 07:17] LABS: PHOSPHORUS 3.4 mg/dL (2.5-4.9)
[2018-11-24] MEDS: PROPOFOL 1000 MG/100 ML PREMIX 100 ML IV PRN ×5 (07:33→22:52)
--- NOTE | 2018-11-24 07:38 | NUR ---
GAVE REPORT TO MORNING SHIFT RNDAVID.
--- NOTE | 2018-11-24 08:00 | NUR ---
RECEIVED PATIENT WITH ENDOTRACHEAL TUBE 7.4, 24 MIDLINE, CONNECTED TO VENTILATOR ON PC MODE FIO2 50% RATE 18, PEEP6, PRESSURE 28, SO2 98%, ON PROPOFOL DRIP, DRY WEIGHT ENTERED IN THE PUMP 104 KGS., ON FENTANYL AT 99 MCG/HR., PATIENT OPENS EYES SPONTANEOUSLY, LOCALIZES TO PAIN, SOFT WRIST RESTRAINTS BILATERAL, PATIENT BEING REORIENTED AND ANTICIPATED PROCEDURES EXPLAINED, PATIENT RESTLESS SHAKING HEAD AND KICKING LEGS REFUSES TO NOD/ SHAKE HEAD FOR YES OR NO QUESTIONS LIKE WHEN ASKED IF SHE'S IN PAIN, WITH OG TUBE AND VITAL AF FEEDING TURNED OFF AT THIS TIME PLAN IS FOR CPAP, NO RESIDUALS UPON ASPIRATION, WITH PHILIP CATHETER, WITH RIGHT INTERNAL JUGULAR TRIPLE LUMEN CENTRAL LINE WITH MILD BLEEDING NOTED AROUND THE SITE
[2018-11-24] MEDS: methylPREDNISolone SS 40 MG/ML VIAL IVP SCH (08:08)
[2018-11-24] MEDS: PANTOPRAZOLE 40 MG INJ VIAL IVP SCH (08:08)
[2018-11-24] MEDS: FUROSEMIDE 20 MG/2 ML VIAL IVP SCH (08:08)
[2018-11-24] MEDS: LORATADINE 10 MG TAB PO SCH (08:09)
[2018-11-24] MEDS: SENNA 8.6 MG TAB PO SCH (08:09)
[2018-11-24] MEDS: LACTOBACILLUS RHAMNOSUS GG 1 EACH CAP PO SCH (08:09)
[2018-11-24] MEDS: FAMOTIDINE 20 MG TAB PO SCH (08:09)
--- NOTE | 2018-11-24 09:00 | NUR ---
PT OFF SEDATION TO START VENTILATOR WEANING. PT IS VERY AGITATED. AT BEDSIDE. PT REFUSES SUCTIONING. PAGED MD SHEIKH AND HE IS AWARE THAT PT IS NOT TOLERATING WEANING OF NOW AND OK TO BE BACK ON PREVIOUS SETTINGS PC. MD JOEL PAGED AND AWARE WELL. DIONTE HERNANDEZ AND CHARGE NURSE RACHEAL AT BEDSIDE. WILL CONTINUE TO MONITOR.
--- NOTE | 2018-11-24 09:00 | NUR ---
PATIENT OFF SEDATION, OFF FEEDING. CPAP INITIATED BY RT
--- NOTE | 2018-11-24 09:15 | NUR ---
PATIENT DOES NOT OBEY COMMANDS, BREATHING IN THE 30-40s. RT PATIENT BACK TO FULL SUPPORT IN THE VENTILATOR. FENTANYL AND PROPOFOL RESTARTED
--- NOTE | 2018-11-24 11:20 | NUR ---
DR. ELIAS AT BEDSIDE
[2018-11-24] MEDS ORDERED: PROBIOTIC SCREEN 1 EA MISC MC PRN (12:30)
[2018-11-24] MEDS: SKINTEGRITY HYDROGEL TP SCH (13:54)
[2018-11-24] MEDS: LORazepam 2 MG/ML VIAL IM/IVP PRN ×2 (16:06→23:22)
--- NOTE | 2018-11-24 17:00 | NUR ---
PATIENT CONTINUES TO BE ON DIPRIVAN AND FENTANYL, RESTLESS IN BETWEEN PATIENT REFUSED CENTRAL LINE DRESSING CHANGE WILL SHAKE HEAD.
[2018-11-24] MEDS: NACL 0.9% 1,000 ML IV SCH (18:20)
--- NOTE | 2018-11-24 18:58 | NUR ---
REPORT GIVEN TO NIGHT RN
--- NOTE | 2018-11-24 19:05 | NUR ---
REPORT GIVEN BY DAY NURSE AT BEDSIDE. RT AT BEDSIDE. DAY NURSE STATES PT HAS SMALL OPENED WOUND ON BOTH ELBOWS. ALL PULSES PRESENT. SOFT WRIST RESTRAINTS ON BILATERAL WRISTS NO OPEN WOUNDS UNDER RESTRAINTS. PULSES PRESENT ON UPPER EXTREMITIES. RIGHT IJ TRIPLE LUMEN RUNNING FENTANYL 99MCG/HR AND PROPOFOL 45MCG/KG/MIN WITH DRY WEIGHT OF 104 KG. RASS -3. INTUBATED 24 AT GUM LINE. PATIENT HAS DENTURES AT BEDSIDE. VSS. 60-97%-18-97/60. 97.3 DEGREES F. OGT TUBE FEEDING RUNNING 60 /HR WITH FREE WATER RUNNING 140 Q6H. PT. LUNG SOUNDS CLEAR BILATERALLY. BOWEL SOUNDS PRESENT IN ALL [address]IL[address] WITH YELLOW CLEAR URINE IN TUBING. PERRL NOTED. SIDE RAILS UP. HOB 30 [address]GREES. SAFETY MEASURES IN PLACE. VSS. WILL CONTINUE TO MONITOR.
--- NOTE | 2018-11-24 19:30 | NUR ---
DR. ZAMORANO PRESENT AT PT BEDSIDE. VSS. UPDATED HIM ON PT. STATUS.
[2018-11-24] MEDS: LEVOFLOXACIN 500 MG/D5W PREMIX 100 ML IV SCH (20:21)
--- NOTE | 2018-11-24 21:51 | NUR ---
DR. LOCO PRESENT AT PT BEDSIDE. UPDATED HIM ON PT STATUS. VSS
--- NOTE | 2018-11-24 23:00 | NUR ---
RT AT PT BEDSIDE TO CHECK PATIENT. VSS AT THIS TIME
[2018-11-25] VITALS (104 sets, daily range): BP systolic 82–146; BP diastolic 27–96
--- NOTE | 2018-11-25 | NUR ---
PROVIDED ORAL CARE FOR PT. TOLERATED WELL. VSS. NO SIGNS OF DISCOMFORT AT THIS TIME. FLACC 0. RASS -3. PT CENTRAL LINE STILL PATENT. RESPIRATIONS SYMMETRICAL AND UNLABORED. WILL CONTINUE TO MONITOR.
[2018-11-25] MEDS: PROPOFOL 1000 MG/100 ML PREMIX 100 ML IV PRN ×7 (00:42→21:29)
[2018-11-25] MEDS: FOAM DRESSING TP SCH ×2 (01:00→13:19)
--- NOTE | 2018-11-25 01:47 | NUR ---
PT. SUCTIONED. TOLERATING WELL. VSS. RASS -3. RESPIRATIONS WNL. UNLABORED. WILL CONTINUE TO MONITOR.
[2018-11-25] MEDS: fentaNYL 1 MG in NACL 0.9% 80 ML IV PRN ×2 (02:39→13:34)
--- NOTE | 2018-11-25 03:30 | NUR ---
RT AT PATIENT BEDSIDE. SUCTIONED PT. VSS. PT. TOLERATING WELL.
[2018-11-25] MEDS: LORazepam 2 MG/ML VIAL IM/IVP PRN ×3 (03:56→20:34)
--- NOTE | 2018-11-25 04:00 | NUR ---
MORNING CARE PROVIDED. CATHETER CARE PROVIDED. PT HAD SMALL BM. VSS. TOLERATED WELL. WILL CONTINUE TO MONITOR.
--- NOTE | 2018-11-25 04:45 | NUR ---
LAB CAME IN. BLOOD DRAW VIA RIGHT IJ LINE. PT. TOLERATED WELL. VSS. NO S/S OF DISCOMFORT AT THIS TIME.
[2018-11-25] MEDS: CLINDAMYCIN 900 MG in DEXTROSE 5% 100 ML IV SCH ×3 (05:10→20:30)
--- NOTE | 2018-11-25 05:26 | NUR ---
CALLED RESIDENT DOCTORS, SPOKE WITH DR. ZAMORANO AND ASKED FOR RESTRAINTS ORDER BE RENEWED.
[2018-11-25 05:29] LABS: ANION GAP 7.6 (8-16); CARBON DIOXIDE 36.1 mmol/L (21-32); CREATININE 0.5 mg/dL (0.6-1.3); POTASSIUM 3.7 mmol/L (3.5-5.1)
[2018-11-25 05:36] LABS: MAGNESIUM 1.8 mg/dL (1.8-2.4); PHOSPHORUS 3.9 mg/dL (2.5-4.9)
--- NOTE | 2018-11-25 06:20 | NUR ---
MD JOEL PRESENT AT BEDSIDE. UPDATED STATUS OF PATIENT
--- NOTE | 2018-11-25 06:40 | NUR ---
XRAY TAKEN OF CHEST PER MD ORDERS. PT TOLERATED WELL. VSS. NO S/S OF DISTRESS NOTED
[2018-11-25 06:43] LABS: BASOPHILS % (AUTO) 0.1 % (0.0-2.0); EOSINOPHILS # (AUTO) 0.5 K/uL (0-0.4); EOSINOPHILS % (AUTO) 5.8 % (0.0-4.0); HEMOGLOBIN 10.4 g/dL (12.0-16.0); LYMPHOCYTES # (AUTO) 1.7 K/uL (2.5-16.5); LYMPHOCYTES % (AUTO) 18.7 % (20.5-51.1); MEAN CORPUSCULAR HEMOGLOBIN 30 pg (27-31); MEAN CORPUSCULAR HGB CONC 34 g/dL (33-37); MEAN CORPUSCULAR VOLUME 89.3 fL (80-94); MONOCYTES # (AUTO) 0.6 K/uL (0.8-1.0); MONOCYTES % (AUTO) 6.1 % (1.7-9.3); NEUTROPHILS # (AUTO) 6.3 K/uL (1.8-7.7); NEUTROPHILS % (AUTO) 69.3 % (42.2-75.2); PLATELET COUNT (AUTO) 234 K/uL (140-450); RED BLOOD CELL COUNT(AUTO) 3.47 MIL/uL (4.20-5.40); RED CELL DISTRIBUTION WIDTH 13.8 % (11.6-13.7); WHITE BLOOD COUNT (AUTO) 9.1 K/uL (4.8-10.8)
[2018-11-25] MEDS: ALBUTEROL SULFATE/IPRATROPIU 3 ML SOL IH SCH ×3 (07:14→18:37)
--- NOTE | 2018-11-25 07:15 | NUR ---
RECEIVED BEDSIDE REPORT FROM POULTRY FARM WORKER RN, PT IS SEDATED, RASS -2, VSS, FLACC 0, TRACH TO VENT WITH PC FIO2 50, P28, R 18, PEEP 6, COUGHING NOTED, SUCTION PROVIDED, RHONCHI LUNG SOUNDS MARY. SR ON BODY TECHNICIAN/PAINTER, CAP REFILL <3 S, LARGE SOFT ABDOMEN WITH ACTIVE BOWEL SOUNDS, OGT IN PLACE, POSITIVE PLACEMENT, FEEDING WITH VITAL AF AT 60ML/HR, 5ML RESIDUALS AT THIS TIME. PHILIP CATHETER IN PLACE, CLEAR YELLOW URINE VIA GRAVITY, SKIN IS WARM AND DRY TO TOUCH, OPEN WOUND PRESENT (SEE WOUND ASSESSMENT), CENTRAL LINE TO RIJ, TLC, PATENT, RUNNING PROPOFOL AT 45 MG/HR, DRY WEIGHT ON PUMP IS 104KG, FENTANYL AT 99 MCG/MIN. GENERALIZED WEAKNESS TO ALL EXTREMITIES, ON SOFT WRIST RESTRAIN, HOB ELEVATED TO 30 DEGREES, SAFETY MEASURE IN PLACE, ORAL CARE PROVIDED, POSITION CHANGED FOR OFF LOAD PRESSURE, WILL CONTINUE TO MONITOR.
--- NOTE | 2018-11-25 08:05 | NUR ---
OFF SEDATION FOR WEANING, RT AT BEDSIDE, WILL PUT PT ON CPAP.
--- NOTE | 2018-11-25 08:12 | NUR ---
PATIENT OFF SEDATION. AWAKE BUT IS VERY AGITATED. PUT ON CPAP 5 PS 10. RR 41 SPO2 DROPPED TO 89%. PT KICKING AND GAGGING.PT BACK ON PC . RN SHERYL AND CHARGE NURSE ELMER AWARE AND AT BEDSIDE.
--- NOTE | 2018-11-25 08:15 | NUR ---
SCHEDULED MEDICATION GIVEN, PT IS VERY AGITATED, WANTED TO TAKE THE TUBE OFF, AND KNOCKED HEAD WILLING TO KILL HER SELF, ATIVAN GIVEN AND BACK ON SEDATION.
[2018-11-25] MEDS: PANTOPRAZOLE 40 MG INJ VIAL IVP SCH (08:36)
[2018-11-25] MEDS: FUROSEMIDE 20 MG/2 ML VIAL IVP SCH (08:36)
[2018-11-25] MEDS: LACTOBACILLUS RHAMNOSUS GG 1 EACH CAP PO SCH (08:37)
[2018-11-25] MEDS: methylPREDNISolone SS 40 MG/ML VIAL IVP SCH (08:37)
[2018-11-25] MEDS: LORATADINE 10 MG TAB PO SCH (08:37)
[2018-11-25] MEDS: SENNA 8.6 MG TAB PO SCH (08:37)
--- NOTE | 2018-11-25 10:00 | NUR ---
NO S/S OF DISTRESS, VSS, FLACC 0, POSITION CHANGED FOR OFF LOAD PRESSURE.
--- NOTE | 2018-11-25 12:00 | NUR ---
PT IS RESTING IN BED, NO S/S OF DISTRESS, VSS, FLACC 0, ORAL CARE AND SUCTION PROVIDED, POSITION CHANGED FOR OFF LOAD PRESSURE.
--- NOTE | 2018-11-25 13:00 | NUR ---
WOUND CARE PROVIDED, PT TOLERATED WELL.
[2018-11-25] MEDS: SKINTEGRITY HYDROGEL TP SCH (13:19)
--- NOTE | 2018-11-25 14:00 | NUR ---
VSS, FLACC 0, NO CHANGE OF CONDITION AT THIS TIME, POSITION CHANGED FOR OFF LOAD PRESSURE.
--- NOTE | 2018-11-25 14:34 | NUR ---
HHN TX NOT GIVEN DUE TO BEING IN RR WITH ANOTHER PT. NO SOB OR DISTRESS NOTED. PT IS ASLEEP COMFORTABLE. ETT IS IN PLACE AND SECURED. WILL CONTINUE TO MONITOR.
--- NOTE | 2018-11-25 15:36 | NUR ---
11/25/18 RD FOLLOW UP COMPLETED PLEASE REFER TO NUTRITION ASSESSMENT UNDER CARE ACTIVITY FOR ESTIMATED NUTRITIONAL NEEDS. 1. CONTINUE VITAL @ 60 ML/HR -THIS WILL PROVIDE 1440 ML OF VOLUME, 1728 KCAL, AND 108 GM OF PROTEIN, WHICH MEETS 100% OF ESTIMATED NEEDS 2. CONTINUE FREE WATER FLUSH OF 140 ML Q6H 3. WHEN PATIENT IS MEDICALLY STABLE CONSIDER SWALLOW EVAL WITH RECOMMENDED FOOD TEXTURES AND CARDIAC DIET. 4. RD WILL FOLLOW UP WITHIN 2-3 DAYS, HIGH RISK PATRICE DUNN RD
--- NOTE | 2018-11-25 16:00 | NUR ---
PM CARE AND F/C CARE PROVIDED, ORAL CARE PROVIDED WITH SUCTION, POSITION CHANGED FOR OFF LOAD PRESSURE.
[2018-11-25] MEDS: NACL 0.9% 1,000 ML IV SCH (17:59)
--- NOTE | 2018-11-25 18:00 | NUR ---
NO CHANGE OF CONDITION, VSS, FLACC 0, POSITION CHANGED FOR OFF LOAD PRESSURE.
--- NOTE | 2018-11-25 18:50 | NUR ---
RECEIVED PATIENT ENDOTRACHEALLY INTUBATED WITH 7. 5 ETT AT 23 CM AT LIP LINE TO MECHANICAL VENTILATOR AT SETTINGS: AC/PC 28, 18, iT 1.2, +6, 40%. VENT CHECK DONE. VENT PLUGGED INTO RED OUTLET. VENT ALARMS ON AND AUDIBLE. AIRWAY SECURE AND PATENT. SUCTIONED MODERATE OF THIN, YELLOW/CLEAR SECRETIONS. SCHEDULED BREATHING TREATMENT ADMINISTERED. TOLERATED TREATMENT WELL WITHOUT ADVERSE SIDE EFFECTS. ORALLY SUCTIONED SMALL AMOUNT OF THIN, CLEAR SECRETIONS. WILL CONTINUE TO MONITOR.
--- NOTE | 2018-11-25 19:05 | NUR ---
REPORT GIVEN AT BEDSIDE BY DAY NURSE. PT LYING IN BED WITH EYES OPEN SPONTANEOUSLY. PERRL NOTED. RASS -2. ETT TO VENTILATOR 24 AT [facility] LINE. A/C PC FI02 40-PINSP 28-RATE 18-TINSP 1.2 PEEP 6 PMAX 50. RIGHT IJ TRIPLE LUMEN RUNNING PROPOFOL 45 MCG/KG/MIN AND FENTANYL 99 MCG/HR WITH A DRY WEIGHT OF 104KG. CENTRAL LINE INTACT AND PATENT WITH DRY DRESSING. LUNG SOUNDS CLEAR BILATERALLY WITH SYMMETRICAL RESPIRATIONS. HR SR-SB ON MONITOR. SOFT WRIST RESTRAINTS ON BUE WITH NO SKIN BREAKDOWN NOTED AND ALL EXTREMITIES PULSE PRESENT. NO EDEMA NOTED. BOWEL SOUNDS ACTIVE IN ALL 4 QUADRANTS. PHILIP PRESENT WITH YELLOW URINE NOTED IN TUBING. OGT CONNECTED TO VITAL AF 1.2 @60/HR WITH WATER FLUSH OF 140 Q6H. NO RESIDUAL NOTED AFTER PROPER PLACEMENT CHECKED. PT REPOSITIONED AT THIS TIME AND ORAL CARE PROVIDED. PT TOLERATED WELL. VS 115/69-18-94%-66-97.1. NO BM NOTED PER DAY NURSE. RT @ BEDSIDE. SIDE RAILS UP. HOB 30 DEGREES. SAFETY MEASURES IN PLACE. SCOTTY LINES PATENT AND RUNNING. WILL CONTINUE TO MONITOR AT THIS TIME.
--- NOTE | 2018-11-25 19:13 | NUR ---
REPORT GIVEN TO WEB MARKETING MANAGER NURSE AT BEDSIDE FOR CONTINUE OF CARE, PT IS STABLE CONDITION AT THIS TIME.
[2018-11-25] MEDS: LEVOFLOXACIN 500 MG/D5W PREMIX 100 ML IV SCH (20:30)
--- NOTE | 2018-11-25 21:00 | NUR ---
DR ZAMORANO AT BEDSIDE. UPDATED MD ON PT STATUS. RT PRESENT AT THIS TIME. MEDICATIONS GIVEN TO PT AT THIS TIME. VSS. TOLERATED WELL. ATIVAN GIVEN AT TIME TIME. NO S/S OF DISTRESS NOTED. WILL CONTINUE TO MONITOR.
--- NOTE | 2018-11-25 23:03 | NUR ---
RT AT BEDSIDE TO CHECK PATIENT. VSS. WILL CONTINUE TO MONITOR.
[2018-11-26] VITALS (50 sets, daily range): BP systolic 90–159; BP diastolic 51–96
--- NOTE | 2018-11-26 | NUR ---
PT COUGHING. SUNCTIONED. ORAL CARE PERFORMED. PT TOLERATED WELL. VSS. WILL CONTINUE TO MONITOR.
[2018-11-26] MEDS: PROPOFOL 1000 MG/100 ML PREMIX 100 ML IV PRN ×2 (00:16→03:30)
[2018-11-26] MEDS: FOAM DRESSING TP SCH ×2 (00:19→12:53)
[2018-11-26] MEDS: fentaNYL 1 MG in NACL 0.9% 80 ML IV PRN (00:19)
--- NOTE | 2018-11-26 01:16 | NUR ---
RT AT BEDSIDE. PT SEDATED. SLEEPING AT THIS TIME. RESPIRATIONS WNL. NO S/S OF DISTRESS. URINE FLOWING INTO PHILIP BAG. VS 124/82-24-95%-69-98.2. WILL CONTINUE TO MONITOR
--- NOTE | 2018-11-26 01:21 | NUR ---
VENT CHECK DONE. VENT ALARMS ON AND AUDIBLE. AMBU BAG AT [facility]. NO ACUTE RESPIRATORY DISTRESS NOTED AT THIS TIME. WILL CONTINUE TO MONITOR.
--- NOTE | 2018-11-26 03:23 | NUR ---
RT AT PT BEDSIDE. GIVING PT PRN BREATHING TX. VSS. PT TOLERATED WELL. NO DISTRESS NOTED. SKIN COLOR WNL. WILL CONTINUE TO MONITOR.
[2018-11-26] MEDS: ALBUTEROL SULFATE/IPRATROPIU 3 ML SOL IH PRN (03:44)
--- NOTE | 2018-11-26 05:30 | NUR ---
CALLED DR. ZAMORANO TO HAVE RESTRAINTS ORDER BE RENEWED.
[2018-11-26] MEDS: CLINDAMYCIN 900 MG in DEXTROSE 5% 100 ML IV SCH ×3 (05:42→21:03)
--- NOTE | 2018-11-26 06:00 | NUR ---
RT CHANGE OF SHIFT AT PT BEDSIDE. PATIENT STATUS UPDATED. VSS. WILL CONTINUE TO MONITOR
--- NOTE | 2018-11-26 06:25 | NUR ---
DR. JOEL AT BEDSIDE. UPDATED ON PATIENT STATUS. WILL CONTINUE TO MONITOR
[2018-11-26] MEDS: ALBUTEROL SULFATE/IPRATROPIU 3 ML SOL IH SCH ×3 (06:40→19:41)
[2018-11-26 06:50] LABS: ANION GAP 7.1 (8-16); CARBON DIOXIDE 36.2 mmol/L (21-32); CREATININE 0.5 mg/dL (0.6-1.3); POTASSIUM 3.3 mmol/L (3.5-5.1)
--- NOTE | 2018-11-26 06:56 | NUR ---
CALLED RESIDENT DOCTORS, CLARIFIED THE PROPOFOL. CURRENT BOTTLE IS HANGING IS ABOUT TO RUN OUT. PER RESIDENT DOCTOR, DO NOT HANG NEW BOTTLE OF PROPOFOL AND JUST KEEP PT ON FENTANYL.
--- NOTE | 2018-11-26 07:00 | NUR ---
RECIVED PT IN VENT WITH SETTINGS CHARTED BREATH SOUNDS PRESENT BILAT COARSE SXN PT WITH MIN AMT OFF WHITE SECS ETT SECURE AMBU BAG AT BEDSIDE VENT PLUGGED INTO RED OUTLET WILL CONTINUE TO MONITRO PT ON VENT
[2018-11-26] MEDS: NACL 0.9% 1,000 ML IV SCH ×2 (07:02→21:56)
[2018-11-26 07:04] LABS: MAGNESIUM 1.8 mg/dL (1.8-2.4); PHOSPHORUS 3.5 mg/dL (2.5-4.9)
[2018-11-26 07:14] LABS: BASOPHILS # (AUTO) 0.1 K/uL (0.00-0.22); BASOPHILS % (AUTO) 0.5 % (0.0-2.0); EOSINOPHILS # (AUTO) 0.3 K/uL (0-0.4); HEMATOCRIT 29.8 % (36-48); LYMPHOCYTES # (AUTO) 1.1 K/uL (2.5-16.5); LYMPHOCYTES % (AUTO) 11.8 % (20.5-51.1); MEAN CORPUSCULAR HEMOGLOBIN 30 pg (27-31); MEAN CORPUSCULAR HGB CONC 33 g/dL (33-37); MONOCYTES # (AUTO) 0.5 K/uL (0.8-1.0); MONOCYTES % (AUTO) 5.4 % (1.7-9.3); NEUTROPHILS # (AUTO) 7.6 K/uL (1.8-7.7); NEUTROPHILS % (AUTO) 79.3 % (42.2-75.2); PLATELET COUNT (AUTO) 224 K/uL (140-450); RED BLOOD CELL COUNT(AUTO) 3.35 MIL/uL (4.20-5.40); RED CELL DISTRIBUTION WIDTH 13.5 % (11.6-13.7); WHITE BLOOD COUNT (AUTO) 9.6 K/uL (4.8-10.8)
--- NOTE | 2018-11-26 07:15 | NUR ---
RECEIVED BEDSIDE REPORT FROM RESORT HOUSEKEEPER RN, PT IS SEDATED, RASS -2, VSS, FLACC 0, TRACH TO VENT WITH PC FIO2 40, P28, R 18, PEEP 6, COUGHING NOTED, SUCTION PROVIDED, CLEAR LUNG SOUNDS MARY. SR ON ELECTRIC GOLF CART REPAIRERS, CAP REFILL <3 S, LARGE SOFT ABDOMEN WITH ACTIVE BOWEL SOUNDS, OGT IN PLACE, POSITIVE PLACEMENT, FEEDING WITH VITAL AF AT 60ML/HR, 10 ML RESIDUALS AT THIS TIME. PHILIP CATHETER IN PLACE, CLEAR YELLOW URINE VIA GRAVITY, SKIN IS WARM AND DRY TO TOUCH, OPEN WOUND PRESENT (SEE WOUND ASSESSMENT), CENTRAL LINE TO RIJ, TLC, PATENT, RUNNING PROPOFOL AT 45 MG/HR, DRY WEIGHT ON PUMP IS 104KG, FENTANYL AT 99 MCG/MIN. GENERALIZED WEAKNESS TO ALL EXTREMITIES, ON SOFT WRIST RESTRAIN, HOB ELEVATED TO 30 DEGREES, SAFETY MEASURE IN PLACE, ORAL CARE PROVIDED, POSITION CHANGED FOR OFF LOAD PRESSURE, WILL CONTINUE TO MONITOR.
--- NOTE | 2018-11-26 07:20 | NUR ---
PROPOFOL HELD PER RESIDENT, PT IS RESTING IN BED AT THIS TIME, NO S/S OF DISTRESS, RT AT BEDSIDE.
--- NOTE | 2018-11-26 08:06 | NUR ---
EXTUBATION HELD OFF FOR NOW PER RESIDENT DR MARYCRUZ GTZ WANTED TO DISCUSS PROCEDURE WITH DR ELIAS
[2018-11-26] MEDS: LACTOBACILLUS RHAMNOSUS GG 1 EACH CAP PO SCH (08:36)
[2018-11-26] MEDS: SENNA 8.6 MG TAB PO SCH (08:36)
[2018-11-26] MEDS: LORATADINE 10 MG TAB PO SCH (08:37)
--- NOTE | 2018-11-26 08:40 | NUR ---
PT EXTUBATED DR JOEL AT BEDSIDE PT AWAKE ALERT ON .50 VENTI WILL CONTINUE TO MONITOR PT ON O2
[2018-11-26] MEDS: PANTOPRAZOLE 40 MG INJ VIAL IVP SCH (08:42)
[2018-11-26] MEDS: FUROSEMIDE 20 MG/2 ML VIAL IVP SCH (08:42)
[2018-11-26] MEDS: methylPREDNISolone SS 40 MG/ML VIAL IVP SCH ×2 (08:42→21:04)
--- NOTE | 2018-11-26 08:45 | NUR ---
PT WAS EXTUBATED BY RT, DR. JOEL AT BEDSIDE, O2 SAT 83% ON VENTI MASK AT 50%, OGT ALSO REMOVED PER DR. JOEL, FAMILY MEMBERS AT BEDSIDE, PT KEEP SAYING "I WANTED TO " DR. JOEL AWARE.
--- NOTE | 2018-11-26 10:00 | NUR ---
PT IS AGITATED, VSS, DENIES PAIN, ON VENTI MASK, TOLERATED WELL. FAMILY MEMBERS AT BEDSIDE, REFUSED CHANGE OF POSITION AT THIS TIME, RISK AND BENEFITS EMPLANED.
[2018-11-26] MEDS: MORPHINE SULFATE 2 MG/ML SYR IVP PRN (11:03)
[2018-11-26] MEDS ORDERED: POTASSIUM CHLORIDE 40 MEQ, LIDOCAINE MPF 1% - 5 mL VIAL 25 MG in NACL 0.9% 250 ML IV SCH (11:30)
--- NOTE | 2018-11-26 12:00 | NUR ---
PT IS RESTING IN BED WATCHING TV, NO S/S OF DISTRESS, VSS, DENIES PAIN, POSITION CHANGED FOR COMFORT, WILL CONTINUE TO MONITOR.
[2018-11-26] MEDS: SKINTEGRITY HYDROGEL TP SCH (12:54)
--- NOTE | 2018-11-26 13:00 | NUR ---
PT C/O NAUSEA, ZOFRAN GIVEN.
[2018-11-26] MEDS: ONDANSETRON 4 MG/2 ML VIAL IM/IVP PRN (13:05)
--- NOTE | 2018-11-26 14:00 | NUR ---
NO CHANGE OF CONDITION, VSS, DENIES PAIN, POSITION CHANGED FOR COMFORT.
--- NOTE | 2018-11-26 14:28 | NUR ---
DEVOPS ARCHITECT note 1430. Bedside swallow evaluation order received, chart reviewed. Pt was intubated on 11/19/2018 and extubated today (11/26/2018) at 0840. Pt's risk for SILENT aspiration is greatest during first 24 hours following extubation. Recommend: 1) STRICT NPO (oral cares only) 2) continue alternative method(s) of nutrition/hydration/medication, as appropriate 3) DEVOPS ARCHITECT to f/u (per DEVOPS ARCHITECT scheduling) to assess pt after minimum of 24 hours following extubation have elapsed to reduce pt's risk for silent aspiration which is the greatest during the first 24 hours following extubation and to reduce pt's risk for re-intubation. DEVOPS ARCHITECT d/w RN (Sheyla).
--- NOTE | 2018-11-26 16:00 | NUR ---
PT IS RESTING IN BED, NO S/S OF DISTRESS, VSS, DENIES PAIN, PM CARE AND ORAL CARE PROVIDED, F/C CARE DONE, POSITION CHANGED FOR COMFORT.
--- NOTE | 2018-11-26 18:00 | NUR ---
NO CHANGE OF CONDITION, VSS, DENIES PAIN, FAMILY MEMBERS AT BEDSIDE, POSITION CHANGED FOR COMFORT.
[2018-11-26] MEDS: SIMETHICONE 80 MG TAB.CHEW PO PRN (18:26)
--- NOTE | 2018-11-26 19:05 | NUR ---
REPORT GIVEN AT BEDSIDE BY DAY NURSE. PT ALERT AND ORIENTED X4 WHILE WATCHING TV ON HER PHONE. PT ABLE TO MAKE NEEDS KNOWN. BREATHING MASK ON FACE AT THIS TIME RUNNING 50%. BOYFRIEND "MILLICENT" JUST LEFT. RIGHT IJ DRY AND INTACT DRESSING. PT SMILING STATING SHE FEELS "FINE AT THIS TIME I JUST HAVE GAS". STOMACH ROUND AND SOFT NON TENDER AT THIS TIME. BOWEL SOUNDS PRESENT IN ALL 4 QUADRANTS. HEART SOUNDS REGULAR. PERRLA BOTH EYES AND SYMMETRICAL. BOTH ELBOW DRESSING CLEAN DRY AND INTACT AT THIS TIME. WHEEZING HEARD IN LUNGS BILATERALLY. RESPIRATIONS SYMMETRICAL AND UNLABORED. SHOWING NO SIGNS OR SYMPTOMS OF DISTRESS AT THIS TIME. FEET INTACT SKIN. PULSES FELT ON ALL 4 EXTREMITIES. AFEBRILE. PHILIP CATHETER INTACT FLOWING YELLOW URINE WITH NORMAL SMELL. NO SEDIMENT NOTED. VSS. SIDE RAILS UP HOB 30 DEGREES. WILL CONTINUE TO MONITOR.
--- NOTE | 2018-11-26 19:22 | NUR ---
REPORT GIVEN TO OBSERVATION NURSE NURSE FOR CONTINUE OF CARE, PT IS IN STABLE CONDITION AT THIS TIME.
--- NOTE | 2018-11-26 19:45 | NUR ---
RT AT PT BEDSIDE. VSS. PT TOLERATING WELL WITH NO SIGNS OF DISTRESS.
--- NOTE | 2018-11-26 19:55 | NUR ---
PT RECEIVING BREATHING TX AT THIS TIME. WHEEZING HEARD IN LUNGS. PT STATES "IM FEELING OK" VSS. PT TOLERATING TX WELL AT THIS TIME. WILL CONTINUE TO MONITOR.
--- NOTE | 2018-11-26 19:57 | NUR ---
RECEIVED PATIENT ON 50% VENTURI MASK, PULSE OX SAT 94%. SCHEDULED BREATHING TREATMENT ADMINISTERED. TOLERATED TX WELL WITHOUT ADVERSE SIDE EFFECTS. PLACED PATIENT BACK ON 50% VENTURI MASK. NO ACUTE RESPIRATORY DISTRESS NOTED AT THIS TIME. WILL CONTINUE TO MONITOR.
[2018-11-26] MEDS: LEVOFLOXACIN 500 MG/D5W PREMIX 100 ML IV SCH (21:03)
--- NOTE | 2018-11-26 21:50 | NUR ---
PT REQUESTED BEDPAN. FEELING OF BOWEL MOVEMENT. ASSISTED ON BEDPAN. PT HAD GOLF BALL SIZE SOFT BOWEL MOVEMENT BROWN WITH FLATULENCE. PT CLEANED AND REPOSITIONED. "I FEEL MUCH BETTER" WILL CONTINUE TO MONITOR. PT TOLERATED WELL. VSS.
--- NOTE | 2018-11-26 22:12 | NUR ---
DR ZAMORANO AT PT BEDSIDE. STATES OK TO DO SWALLOW EVALUATION. PT VSS. COHERENT, ALERT AND ORIENTED. PT UNDERSTANDS SITUATION. ABLE TO MAKE NEEDS KNOWN. BOYFRIEND AT BEDSIDE. WILL CONTINUE TO MONITOR
--- NOTE | 2018-11-26 22:40 | NUR ---
PT TOLERATED SWALLOW EVALUATION WELL. WILL FOLLOW UP ON NEW MD ORDERS. VSS. WILL CONTINUE TO MONITOR
--- NOTE | 2018-11-26 23:18 | NUR ---
TITRATED FIO2 TO 40% VIA VENTURI MASK TO MAINTAIN OXYGEN SATURATION BETWEEN 88-92% PER ORDER. RN NOTIFIED. NO ACUTE RESPIRATORY DISTRESS NOTED AT THIS TIME. WILL CONTINUE TO MONITOR.
--- NOTE | 2018-11-26 23:28 | NUR ---
PT IN BED SLEEPING. VSS. URINE STILL FLOWING THROUGH PHILIP CATHETER. TOLERATING MASK WELL. WILL CONTINUE TO MONITOR
[2018-11-27] VITALS (8 sets, daily range): BP systolic 102–133; BP diastolic 58–83
--- NOTE | 2018-11-27 01:00 | NUR ---
RT IN PATIENT ROOM. SPEAKING WITH PT. PT CHECKING PHONE. "IM OK" WILL CONTINUE TO MONITOR. VSS. NO COMPLAINTS OF PAIN OR DISTRESS AT THIS TIME. "I DONT NEED ANYTHING RIGHT NOW" SAFETY MEASURES IN PLACE. STATES SHE KNOWS HOW TO GET AHOLD OF NURSE. WILL CONTINUE TO MONITOR
--- NOTE | 2018-11-27 01:10 | NUR ---
PATIENT DESATURATING TO 86%. INCREASED FIO2 TO 50% VENTURI MASK. WILL CONTINUE TO MONITOR.
[2018-11-27] MEDS: FOAM DRESSING TP SCH ×2 (01:51→13:00)
--- NOTE | 2018-11-27 03:10 | NUR ---
PT PASSING GAS. STATES "IT FEELS BETTER" VSS. FIXED BP CUFF. WILL CONTINUE TO MONITOR.
--- NOTE | 2018-11-27 05:00 | NUR ---
MORNING CARE PROVIDED BY NURSE. PT ASSISTED. TOLERATED WELL. WILL CONTINUE TO MONITOR
[2018-11-27] MEDS: CLINDAMYCIN 900 MG in DEXTROSE 5% 100 ML IV SCH ×3 (05:17→20:26)
[2018-11-27] MEDS: ALBUTEROL SULFATE/IPRATROPIU 3 ML SOL IH SCH ×3 (06:58→19:59)
--- NOTE | 2018-11-27 07:30 | NUR ---
RECEIVED PT FROM PM NURSE. PT SLEEPING BUT AROUSABLE. ON VENTURI MASK. DENIES RESPIRATORY DISTRESS OR DISCOMFORT AT THIS MOMENT. BEDSIDE MONITOR SHOWS SR. S1 S2 HEARD, CAP REFILL LESS THAN 3 SECOND. PT ABD LARGE WITH ACTIVE BOWEL SOUND. PT HAS F/C WITH YELLOW URINE NOTED. PT ABLE TO MOVE ALL HER EXTREMITIES. CALL LIGHT IN REACH, INTRODUCED MY SELF.WILL CONTINUE TO MONITOR PT.
[2018-11-27] MEDS: PANTOPRAZOLE 40 MG INJ VIAL IVP SCH (09:14)
[2018-11-27] MEDS: FUROSEMIDE 20 MG/2 ML VIAL IVP SCH (09:14)
[2018-11-27] MEDS: LACTOBACILLUS RHAMNOSUS GG 1 EACH CAP PO SCH (09:15)
[2018-11-27] MEDS: SENNA 8.6 MG TAB PO SCH (09:15)
[2018-11-27] MEDS: LORATADINE 10 MG TAB PO SCH (09:15)
[2018-11-27] MEDS: methylPREDNISolone SS 40 MG/ML VIAL IVP SCH ×2 (09:15→20:25)
--- NOTE | 2018-11-27 09:50 | NUR ---
ASSISTED PT TO BEDSIDE COMMODE, PT HAD MODERATE AMOUNT OF SOFT BROWNISH BM. CLEANED PT. ASSISTED PT BACK TO BED. PT TOLERATED WELL.
[2018-11-27 10:57] LABS: BASOPHILS % (AUTO) 0.2 % (0.0-2.0); EOSINOPHILS # (AUTO) 0.1 K/uL (0-0.4); EOSINOPHILS % (AUTO) 0.5 % (0.0-4.0); HEMATOCRIT 35.9 % (36-48); HEMOGLOBIN 11.8 g/dL (12.0-16.0); LYMPHOCYTES # (AUTO) 1.4 K/uL (2.5-16.5); LYMPHOCYTES % (AUTO) 11.5 % (20.5-51.1); MEAN CORPUSCULAR HEMOGLOBIN 29 pg (27-31); MEAN CORPUSCULAR HGB CONC 33 g/dL (33-37); MEAN CORPUSCULAR VOLUME 89.2 fL (80-94); MONOCYTES # (AUTO) 0.7 K/uL (0.8-1.0); MONOCYTES % (AUTO) 5.7 % (1.7-9.3); NEUTROPHILS # (AUTO) 9.7 K/uL (1.8-7.7); NEUTROPHILS % (AUTO) 82.1 % (42.2-75.2); PLATELET COUNT (AUTO) 269 K/uL (140-450); RED BLOOD CELL COUNT(AUTO) 4.02 MIL/uL (4.20-5.40); RED CELL DISTRIBUTION WIDTH 14.1 % (11.6-13.7); WHITE BLOOD COUNT (AUTO) 11.9 K/uL (4.8-10.8)
[2018-11-27 11:15] LABS: ANION GAP 10.5 (8-16); CARBON DIOXIDE 34.1 mmol/L (21-32); CREATININE 0.6 mg/dL (0.6-1.3); POTASSIUM 3.6 mmol/L (3.5-5.1)
--- NOTE | 2018-11-27 12:06 | NUR ---
PT RESTING IN BED, TALKING TO HER BOY FRIEND. DENIES ANY DISCOMFORT OR PAIN.
[2018-11-27] MEDS: SKINTEGRITY HYDROGEL TP SCH (13:00)
--- NOTE | 2018-11-27 16:21 | NUR ---
PT SLEEPING, NO S/S OF RESPIRATORY DISTRESS OR DISCOMFORT NOTED.
--- NOTE | 2018-11-27 19:30 | NUR ---
RECEIVED BEDSIDE REPORT FROM DAY SHIFT RN PETROS. PATIENT IN BED, ON 5 L VIA NC, V/S STABLE DENIES PAIN. AAOX4, ABLE TO FOLLOW COMMANDS AND MAKE NEEDS KNOWN. PUPILS ARE EQUAL ROUND AND REACTIVE SIZE 3 BILATERALLY. RIGHT IJ TRIPLE LUMEN CENTRAL LINE CATH INFUSING NS AT 100 ML/HR, DRESSING CLEAN AND INTACT. LUNG SOUNDS ARE DIMINISHED IN UPPER LOBES. S1 AND S2 HEARD, PULSES PALPATED IN UPPER AND LOWER EXTREMITIES. ABDOMEN DISTENDED PATIENT C/O FEELING BLOATED AFTER EATING DINNER. BILATERAL ELBOW DRESSING IN PLACE. PHILIP CATH DRAINING YELLOW URINE. EXPLAINED PLAN OF CARE, BED IN LOWEST POSITION, CALL LIGHT WITHIN REACH. WILL CONTINUE TO MONITOR.
[2018-11-27] MEDS: SIMETHICONE 80 MG TAB.CHEW PO PRN (20:26)
--- NOTE | 2018-11-27 20:26 | NUR ---
DUE MEDICATIONS GIVEN EDUCATION PROVIDED REGARDING SIDE EFFECTS
[2018-11-27] MEDS: LEVOFLOXACIN 500 MG/D5W PREMIX 100 ML IV SCH (21:50)
--- NOTE | 2018-11-27 22:30 | NUR ---
AT BEDSIDE UPDATE GIVEN
[2018-11-28] VITALS: BP 129/80
[2018-11-28] MEDS: HYDROcodone/APAP 5/325 MG 1 TAB TAB PO PRN (00:25)
--- NOTE | 2018-11-28 00:25 | NUR ---
PATIENT C/O PAIN IN NECK AND BACK GAVE NORCO FOR 6/10 PAIN
[2018-11-28] MEDS: FOAM DRESSING TP SCH ×2 (01:41→12:51)
--- NOTE | 2018-11-28 01:51 | NUR ---
PATIENT SLEEPING IN BED, CALL LIGHT WITHIN REACH, WILL CONTINUE TO MONITOR
[2018-11-28 04:00] VITALS: BP 122/69
--- NOTE | 2018-11-28 04:00 | NUR ---
PATIENT REPOSITIONED FOR COMFORT, NO BM, BED BATH PROVIDED. CALL LIGHT WITHIN REACH, BED IN LOWEST POSITION.
[2018-11-28] MEDS: CLINDAMYCIN 900 MG in DEXTROSE 5% 100 ML IV SCH ×3 (05:41→20:14)
[2018-11-28 06:04] LABS: BASOPHILS % (AUTO) 0.1 % (0.0-2.0); EOSINOPHILS % (AUTO) 0.2 % (0.0-4.0); HEMATOCRIT 34.8 % (36-48); HEMOGLOBIN 11.3 g/dL (12.0-16.0); LYMPHOCYTES % (AUTO) 8.8 % (20.5-51.1); MEAN CORPUSCULAR HEMOGLOBIN 29 pg (27-31); MEAN CORPUSCULAR HGB CONC 32 g/dL (33-37); MEAN CORPUSCULAR VOLUME 89.6 fL (80-94); MONOCYTES # (AUTO) 0.7 K/uL (0.8-1.0); MONOCYTES % (AUTO) 5.9 % (1.7-9.3); NEUTROPHILS # (AUTO) 9.8 K/uL (1.8-7.7); PLATELET COUNT (AUTO) 256 K/uL (140-450); RED BLOOD CELL COUNT(AUTO) 3.89 MIL/uL (4.20-5.40); RED CELL DISTRIBUTION WIDTH 14.1 % (11.6-13.7); WHITE BLOOD COUNT (AUTO) 11.5 K/uL (4.8-10.8)
--- NOTE | 2018-11-28 06:15 | NUR ---
PATIENT RESTING IN BED, CALL LIGHT WITHIN REACH. WILL CONTINUE TO MONITOR
[2018-11-28 06:19] LABS: ANION GAP 5.6 (8-16); CARBON DIOXIDE 34.4 mmol/L (21-32); CREATININE 0.6 mg/dL (0.6-1.3)
--- NOTE | 2018-11-28 07:20 | NUR ---
ENDORSED PATIENT TO DAY SHIFT NURSE PETROS PATIENT IN BED VS STABLE CALL LIGHT WITHIN REACH.
--- NOTE | 2018-11-28 07:21 | NUR ---
RECEIVED BEDSIDE REPORT FROM FAMILY RESOURCE MANAGEMENT PROFESSOR RN, PT IS AAOX4, ABLE TO FOLLOW COMMANDS AND MAKE NEEDS KNOWN, VSS, DENIES PAIN, NO S/S OF DISTRESS, CLEAR LUNG SOUNDS MARY, ON O2 AT 6L VIA NC, SR ON BAIL BOND AGENT, CAP REFILL <3 S, LARGE SOFT ABDOMEN WITH ACTIVE BOWEL SOUNDS, PHILIP CATHETER IN PLACE, CLEAR YELLOW URINE VIA GRAVITY, SKIN IS WARM AND DRY TO TOUCH, OPEN WOUND PRESENT (SEE WOUND ASSESSMENT), CENTRAL LINE TO RIJ, TLC, PATENT AND TKO, ABLE TO MOVE ALL EXTREMITIES, HOB ELEVATED TO 30 DEGREES, SAFETY MEASURE IN PLACE, CALL LIGHT WITHIN REACH, WILL CONTINUE TO MONITOR.
--- NOTE | 2018-11-28 07:23 | NUR ---
AWAKE AND ALERT VERBALLY RESPONSIVE TO BOMB LOADER VERBAL COMMANDS NO PULMONARY DISTRESS NOTED PATIENT WITH BREAKFAST TRAY BOMB LOADER TO ATTEMPT [facility] THERAPY AND RESPIRATORY DRUG AT A LATER TIME
[2018-11-28] MEDS: ALBUTEROL SULFATE/IPRATROPIU 3 ML SOL IH SCH ×3 (07:59→18:59)
[2018-11-28 08:00] VITALS: BP 149/91
[2018-11-28] MEDS: FUROSEMIDE 20 MG/2 ML VIAL IVP SCH (08:40)
[2018-11-28] MEDS: PANTOPRAZOLE 40 MG INJ VIAL IVP SCH (08:40)
[2018-11-28] MEDS: LORATADINE 10 MG TAB PO SCH (08:42)
[2018-11-28] MEDS: ESCITALOPRAM 20 MG TAB PO SCH (08:42)
[2018-11-28] MEDS: SENNA 8.6 MG TAB PO SCH (08:42)
[2018-11-28] MEDS: methylPREDNISolone SS 40 MG/ML VIAL IVP SCH ×2 (08:42→20:14)
[2018-11-28] MEDS: LACTOBACILLUS RHAMNOSUS GG 1 EACH CAP PO SCH (08:42)
[2018-11-28] MEDS: ARIPiprazole 10 MG TAB PO SCH (08:51)
--- NOTE | 2018-11-28 09:00 | NUR ---
SCHEDULED MEDICATION GIVEN, PT TOLERATED WELL, MEDICATION INDICATION AND SIDE EFFECTS EXPLAINED TO PT, PT VERBALIZED UNDERSTANDING.
--- NOTE | 2018-11-28 09:35 | NUR ---
SATURATION 89% ON SUPPLEMENTAL OXYGEN AT 4 LPM VIA NC CHANGED OXYGEN DEVICE TO OXYMIZER AT 4 LPM UNDERCOATER TO MONITOR SHERYL/RN NOTIFIED
--- NOTE | 2018-11-28 11:32 | NUR ---
(11/28/18) RD FOLLOW UP COMPLETED PLEASE REFER TO NUTRITION PROGRESS NOTE UNDER CARE ACTIVITY FOR ESTIMATED NUTRITION NEEDS. RD RECOMMENDATIONS: CONTINUE ON CARDIAC DIET TOLERATED. RD WILL FOLLOW UP WITHIN 2-3 DAYS, HIGH RISK DELORES CRUZ MS, RDN
[2018-11-28 12:00] VITALS: BP 113/64
--- NOTE | 2018-11-28 12:00 | NUR ---
PT IS ASLEEP IN BED, NO S/S OF DISTRESS, VSS, DENIES PAIN, SELF POSITION IN BED.
[2018-11-28] MEDS: SKINTEGRITY HYDROGEL TP SCH (12:51)
[2018-11-28 16:00] VITALS: BP 117/65
--- NOTE | 2018-11-28 16:00 | NUR ---
PT IS RESTING IN BED, NO S/S OF DISTRESS, VSS, DENIES PAIN, PM CARE AND ORAL CARE PROVIDED, POSITION CHANGED FOR COMFORT.
[2018-11-28] MEDS: NACL 0.9% 1,000 ML IV SCH (18:20)
--- NOTE | 2018-11-28 19:00 | NUR ---
RECEIVED BEDSIDE REPORT FROM DAY SHIFT RN PETROS. PATIENT IN BED, ON 4 L VIA OXYMIZER, 92% O2SAT, BREATHING 30 RR/MIN EVEN AND SYMMETRICAL CHEST RISE. NOTED WHEEZING IN UPPER LOBES, COUGH NOTED, V/S STABLE, C/O PAIN IN BACK AND NECK 11/27 REQUESTED MORPHINE. AAOX4, ABLE TO FOLLOW COMMANDS AND MAKE NEEDS KNOWN. PUPILS ARE EQUAL ROUND AND REACTIVE SIZE 3 BILATERALLY. RIGHT IJ TRIPLE LUMEN CENTRAL LINE CATH INFUSING NS AT 10 ML/HR, DRESSING CLEAN AND INTACT. S1 AND S2 HEARD, PULSES PALPATED IN UPPER AND LOWER EXTREMITIES. ABDOMEN DISTENDED PATIENT C/O FEELING BLOATED AFTER EATING DINNER. BILATERAL ELBOW DRESSING IN PLACE. PHILIP CATH DRAINING YELLOW URINE. EXPLAINED PLAN OF CARE, BED IN LOWEST POSITION, CALL LIGHT WITHIN REACH. WILL CONTINUE TO MONITOR.
--- NOTE | 2018-11-28 19:05 | NUR ---
REPORT GIVEN TO ASSISTANT ASSOCIATE FULL PROFESSOR NURSE FOR CONTINUE OF CARE, PT IS IN STABLE CONDITION AT THIS TIME.
[2018-11-28] MEDS: MORPHINE SULFATE 2 MG/ML SYR IVP PRN ×2 (19:23→23:21)
[2018-11-28] MEDS: SIMETHICONE 80 MG TAB.CHEW PO PRN (19:23)
--- NOTE | 2018-11-28 19:30 | NUR ---
DR LOCO AT BEDSIDE, UPDATE GIVEN, NO CHANGES IN PLAN OF CARE AT THIS TIME.
[2018-11-28 20:00] VITALS: BP 130/70
--- NOTE | 2018-11-28 20:00 | NUR ---
DR TEJEDA AT BEDSIDE, UPDATE GIVEN, NO CHANGES IN PLAN OF CARE AT THIS TIME.
--- NOTE | 2018-11-28 21:00 | NUR ---
DUE MEDICATIONS GIVEN, EDUCATION PROVIDED, PATIENT RESTING IN BED, RR EVEN AND UNLABORED, V/S STABLE, CALL LIGHT WITHIN REACH, WILL CONTINUE TO MONITOR.
[2018-11-28] MEDS: LEVOFLOXACIN 500 MG/D5W PREMIX 100 ML IV SCH (21:17)
--- NOTE | 2018-11-28 23:21 | NUR ---
PATIENT C/O BACK AND NECK PAIN GAVE MORPHINE FOR PAIN 11/27
[2018-11-29] VITALS: BP 152/91
--- NOTE | 2018-11-29 00:21 | NUR ---
PATIENT RESTING IN BED, NO S/S PAIN, V/S STABLE
[2018-11-29] MEDS: FOAM DRESSING TP SCH ×2 (01:11→13:16)
--- NOTE | 2018-11-29 02:16 | NUR ---
PATIENT SLEEPING IN BED, V/S STABLE, CALL LIGHT WITHIN REACH, WILL CONTINUE TO MONITOR
[2018-11-29] MEDS: MORPHINE SULFATE 2 MG/ML SYR IVP PRN ×2 (03:34→13:34)
[2018-11-29 04:00] VITALS: BP 138/75
--- NOTE | 2018-11-29 04:30 | NUR ---
PATIENT REPOSITIONED FOR COMFORT, PHILIP CARE PROVIDED, CALL LIGHT WITHIN REACH, V/S STABLE
[2018-11-29] MEDS: CLINDAMYCIN 900 MG in DEXTROSE 5% 100 ML IV SCH ×3 (04:33→21:22)
[2018-11-29 06:27] LABS: ANION GAP 7.6 (8-16); CARBON DIOXIDE 33.5 mmol/L (21-32); CREATININE 0.6 mg/dL (0.6-1.3); POTASSIUM 4.1 mmol/L (3.5-5.1)
--- NOTE | 2018-11-29 06:30 | NUR ---
WILL TRANSFER PATIENT TO [facility] FOR CONTINUITY OF CARE. PATIENT TO BE TRANSFERRED TO 105 [address].
[2018-11-29] MEDS ORDERED: LEVOFLOXACIN 500 MG/D5W PREMIX 100 ML IV SCH ×2 (06:35→22:00)
[2018-11-29 07:07] LABS: BASOPHILS % (AUTO) 0.1 % (0.0-2.0); EOSINOPHILS % (AUTO) 0.3 % (0.0-4.0); HEMATOCRIT 35.2 % (36-48); HEMOGLOBIN 11.4 g/dL (12.0-16.0); LYMPHOCYTES # (AUTO) 1.2 K/uL (2.5-16.5); LYMPHOCYTES % (AUTO) 9.3 % (20.5-51.1); MEAN CORPUSCULAR HEMOGLOBIN 29 pg (27-31); MEAN CORPUSCULAR HGB CONC 32 g/dL (33-37); MEAN CORPUSCULAR VOLUME 90.2 fL (80-94); MONOCYTES # (AUTO) 0.6 K/uL (0.8-1.0); MONOCYTES % (AUTO) 5.1 % (1.7-9.3); NEUTROPHILS # (AUTO) 10.5 K/uL (1.8-7.7); NEUTROPHILS % (AUTO) 85.2 % (42.2-75.2); PLATELET COUNT (AUTO) 260 K/uL (140-450); RED BLOOD CELL COUNT(AUTO) 3.91 MIL/uL (4.20-5.40); RED CELL DISTRIBUTION WIDTH 14.4 % (11.6-13.7); WHITE BLOOD COUNT (AUTO) 12.4 K/uL (4.8-10.8)
--- NOTE | 2018-11-29 07:15 | NUR ---
REPORT GIVEN TO [facility] [[email or web address]] NURSE AMATO FOR CONTINUITY OF CARE.
--- NOTE | 2018-11-29 07:17 | NUR ---
RECEIVED REPORT ICU NURSE. RESPIRATIONS EVEN AND UNLABORED ON 4L OXIMIZER, NO SIGNS OF SOB. PT IS ON FERN CUTTER. NOTED WOUNDS TO BILATERAL ELBOWS, DRESSING CLEAN, DRY AND INTACT, WARM TO TOUCH. F/C IN PLACE DRAINING YELLOW URINE, 300 ML IN COLLECTION BAG. RT IJ TRIPLE LUMEN RUNNING IVF PER ORDER, ONLY 2 LUMENS FLUSHING WITH NO RESISTANCE. PT IS ON FALL RISK PRECAUTIONS, SAFETY MEASURES IN PLACE, BED ON LOW POSITIONS. REVIEWED POC WITH PT, PT VERBALIZED UNDERSTANDING.
[2018-11-29] MEDS: ALBUTEROL SULFATE/IPRATROPIU 3 ML SOL IH SCH ×3 (07:52→20:00)
[2018-11-29 08:00] VITALS: BP 137/76
[2018-11-29] MEDS: ARIPiprazole 10 MG TAB PO SCH (09:41)
[2018-11-29] MEDS: LACTOBACILLUS RHAMNOSUS GG 1 EACH CAP PO SCH (09:41)
[2018-11-29] MEDS: SENNA 8.6 MG TAB PO SCH (09:41)
[2018-11-29] MEDS: HYDROcodone/APAP 5/325 MG 1 TAB TAB PO PRN ×2 (09:41→21:37)
[2018-11-29] MEDS: methylPREDNISolone SS 40 MG/ML VIAL IVP SCH ×2 (09:42→21:22)
[2018-11-29] MEDS: FUROSEMIDE 20 MG/2 ML VIAL IVP SCH (09:42)
[2018-11-29] MEDS: ESCITALOPRAM 20 MG TAB PO SCH (09:42)
[2018-11-29] MEDS: PANTOPRAZOLE 40 MG INJ VIAL IVP SCH (09:42)
[2018-11-29] MEDS: LORATADINE 10 MG TAB PO SCH (09:42)
--- NOTE | 2018-11-29 09:42 | NUR ---
GIVEN MEDICATIONS PER ORDER. PT HAS NO SIGNS OF DISTRESS OR SOB AT THIS TIME.
[2018-11-29 12:00] VITALS: BP 146/71
--- NOTE | 2018-11-29 12:48 | NUR ---
END TOUCHING MACHINE OPERATOR note [id number]. Bedside swallow evaluation completed, please see report for details. END TOUCHING MACHINE OPERATOR provided pt and pt's spouse (at bedside) with education regarding purpose of END TOUCHING MACHINE OPERATOR's visit and rationale for recommendations. Pt and spouse verbalized agreement and understanding at this time. Recommend: 1) continue regular textures 2) continue thin liquids 3) general aspiration precautions (including pt must be fully awake/alert/upright for any PO intakes, stop giving PO if pt becomes less alert/SOB/coughing) 4) no further END TOUCHING MACHINE OPERATOR intervention indicated at this time. Physician may reorder if further concerns arise, as appropriate. END TOUCHING MACHINE OPERATOR d/w RN (Tashia) prior to and following bedside swallow evaluation completion. G-codes: [id number] [id number] [id number] CECE NOMS level 6.
[2018-11-29] MEDS: NACL 0.9% 1,000 ML IV SCH (13:14)
[2018-11-29] MEDS: SKINTEGRITY HYDROGEL TP SCH (13:16)
--- NOTE | 2018-11-29 13:34 | NUR ---
PT C/O 10/27 PAIN TO BACK, MEDICATED PER ORDER. WILL REASSESS WITHIN 1 HOUR.
[2018-11-29] MEDS ORDERED: FURO-570 PO (13:49)
[2018-11-29] MEDS ORDERED: ABI10 PO (13:49)
[2018-11-29] MEDS ORDERED: PRED10TA6 PO (13:49)
[2018-11-29] MEDS ORDERED: LEVO500T2 PO (13:49)
[2018-11-29] MEDS ORDERED: CLIN300C2 PO (13:49)
[2018-11-29] MEDS ORDERED: LACT10CA PO (13:49)
[2018-11-29] MEDS ORDERED: LORA10TA19 PO (13:49)
[2018-11-29] MEDS ORDERED: ESCI20TA47 PO (13:49)
--- NOTE | 2018-11-29 13:50 | NUR ---
POST [facility] THERAPY OFF SUPPLEMENTAL OXYGEN AT THIS TIME FOR ABG VIA ROOM AIR
--- NOTE | 2018-11-29 14:03 | NUR ---
CALLED DR SOY DASILVA [phone] TO REVIEW [facility] SAMPLE REPORT FOREMENTIONED OUT OF AREA RELEASED ABG CRITICAL REPORT TO DR LEN ASHBY HYPO DIPPER RECOMMENDATION FOR HOME SUPPLEMENTAL OXYGEN AT 3-4 LPM
--- NOTE | 2018-11-29 15:17 | NUR ---
DC PLANNING: HOME OXYGEN ORDER ALONG WITH LATEST ABG, H&P AND CERTIFICATE OF MEDICAL NECESSITY FOR OXYGEN HAS BEEN FAXED TO [facility] [address] . CM TO FOLLOW UP NEEDED. Addendum: 11/29/18 at 1609 by Mariel Nava CM CM FOLLOW UP ON HOME OXYGEN. PER TAHIR AT [facility], IT WILL TAKE ABOUT 24 HOURS TO PROCESS A HOME OXYGEN ORDER. CM TO FOLLOW UP TOMORROW NEEDED.
[2018-11-29 16:00] VITALS: BP 131/71
--- NOTE | 2018-11-29 16:30 | NUR ---
PT NOTIFIED THAT DME FOR OXYGEN IS NOT YET READY FOR TODAY.
--- NOTE | 2018-11-29 17:40 | NUR ---
PT REPORTED THAT SHE HAD 3 BOWEL MOVEMENTS TODAY.
--- NOTE | 2018-11-29 19:20 | NUR ---
ENDORSED PT TO GRAIN MANAGER NURSE. PT HAS NO SIGNS OF DISTRESS.
--- NOTE | 2018-11-29 19:21 | NUR ---
RECEIVED REPORT FROM AM NURSE. PT AWAKE, ALERT AND ORIENTED X4. ABLE TO ANSWER QUESTIONS AND FOLLOW COMMANDS. VISIBLE CHEST RISE AND FALL ON 4L OXIMIZER, NO DISTRESS NOTED. ON TELE MONITORING. RIGHT IJ TRIPLE LUMEN INTACT AND INFUSING WELL. IT WAS ENDORSED BY DAY SHIFT THAT WHITE LUMEN NOT PATENT. PT HAS DRESSING ON BILATERAL ELBOWS, DRESSING INTACT W/O SIGNS IF DRAINAGE. PHILIP IN PLACE. PT ON FALL PRECAUTIONS, BED ALARM ON. CALL LIGHT WITHIN REACH. WILL CONTINUE TO MONITOR.
[2018-11-29 20:00] VITALS: BP 118/42
--- NOTE | 2018-11-29 21:22 | NUR ---
MEDICATIONS ADMINISTERED. PT TOLERATED WELL. C/O 5/10 BACK PAIN. WILL MEDICATE.
--- NOTE | 2018-11-29 21:37 | NUR ---
NORCO ADMINISTERED FOR 5/10 BACK PAIN.
[2018-11-30 00:20] VITALS: BP 138/72
--- NOTE | 2018-11-30 00:20 | NUR ---
VITALS TAKEN. PT AWAKE IN BED RESTING. PT IV INTERMITTENTLY BEEPING FOR HIGH PRESSURE ALARM. RIJ FLUSHING WELL, IV TUBING UNCLAMPED. CHANGED IV PUMP TO STOP ALARM.
[2018-11-30] MEDS: FOAM DRESSING TP SCH ×2 (01:00→12:24)
[2018-11-30] MEDS: CYCLOBENZAPRINE 10 MG TAB PO SCH ×3 (01:28→12:28)
--- NOTE | 2018-11-30 01:28 | NUR ---
PT C/O BACK PAIN, STATING IT FEELS LIKE "A KNOT IN MY RIGHT SHOULDER" RELAYED THIS INFORMATION TO RESIDENT MD ZAMORANO. PER MD OKAY TO GIVE FLEXERIL FOR MUSCLE PAIN AND HEAT THERAPY TO RIGHT SHOULDER. FLEXERIL ADMINISTERED AT THIS TIME.
[2018-11-30 04:00] VITALS: BP 118/67
--- NOTE | 2018-11-30 04:00 | NUR ---
VITALS TAKEN. PT SNORING IN LEFT LATERAL POSITION WITH 4L OXIMIZER. VISIBLE CHEST RISE AND FALL ON ROOM AIR. NO VISIBLE SIGNS OF DISCOMFORT. CALL LIGHT WITHIN REACH.
[2018-11-30] MEDS: CLINDAMYCIN 900 MG in DEXTROSE 5% 100 ML IV SCH ×2 (04:57→12:28)
[2018-11-30] MEDS: ALBUTEROL SULFATE/IPRATROPIU 3 ML SOL IH SCH ×2 (07:04→13:46)
--- NOTE | 2018-11-30 07:05 | NUR ---
RECEIVED REPORT FROM NIGHT RN. PT RESTING IN BED. AAOX4, NO S/S OF ACUTE DISTRESS. PT DENIES PAIN. PT ON OXIMIZER 4L. RIGHT IJ PICC LINE NOTED, PATENT AND INTACT. CALL LIGHT WITHIN REACH. SAFETY MEASURES ENSURED. WILL CONTINUE TO MONITOR.
[2018-11-30 08:00] VITALS: BP 159/40
[2018-11-30] MEDS: PANTOPRAZOLE 40 MG INJ VIAL IVP SCH (08:25)
[2018-11-30] MEDS: methylPREDNISolone SS 40 MG/ML VIAL IVP SCH (08:25)
[2018-11-30] MEDS: FUROSEMIDE 20 MG/2 ML VIAL IVP SCH (08:26)
[2018-11-30] MEDS: LORATADINE 10 MG TAB PO SCH (08:26)
[2018-11-30] MEDS: SENNA 8.6 MG TAB PO SCH (08:26)
[2018-11-30] MEDS: ESCITALOPRAM 20 MG TAB PO SCH (08:26)
[2018-11-30] MEDS: ARIPiprazole 10 MG TAB PO SCH (08:26)
[2018-11-30] MEDS: LACTOBACILLUS RHAMNOSUS GG 1 EACH CAP PO SCH (08:27)
--- NOTE | 2018-11-30 09:34 | NUR ---
Spoke with Hadley from [facility] , delivery for the home oxygen at bedside will be after 1400 today and the concentrator will be delivered at home after 1700.
--- NOTE | 2018-11-30 10:50 | NUR ---
PATIENT RESTING IN BED. AAOX4. NO S/S OF ACUTE DISTRESS. PT DENIES PAIN. IV SITE PATENT AND INTACT. CALL LIGHT WITHIN REACH. WILL CONTINUE TO MONITOR.
[2018-11-30 11:08] VITALS: BP 142/71
[2018-11-30] MEDS: SKINTEGRITY HYDROGEL TP SCH (12:24)
[2018-11-30] MEDS ORDERED: PNEUMOCOCCAL VACCINE 23 MCG/0.5 ML VIAL IMVAC SCH (14:20)
--- NOTE | 2018-11-30 15:22 | NUR ---
PATIENT URINATED AFTER PHILIP REMOVAL
--- NOTE | 2018-11-30 16:00 | NUR ---
PT'S AT BEDSIDE WITH O2 TANK AND CONCENTRATOR. PT REFUSES PNA VACCINE AT THIS TIME STATING SHE IS CONCERNED AND WANTS TO WAIT. PT REFUSES PICS OF ELBOWS AT THIS TIME STATING SHE NEEDS TO GET HOME.
--- NOTE | 2018-11-30 16:06 | NUR ---
DISCHARGE INSTRUCTIONS PROVIDED TO PATIENT. PATIENT VERBALIZED UNDERSTANDING. RIGHT IJ REMOVED. NO S/S OF ACUTE DISTRESS. PT WHEELED TO FRONT LOBBY.
== END 2018-11-30 16:04 | disposition home or self-care (01) | DRG 720 ==
LOC: MED 16:41 → MTU 18:30 → MIC 11-19 17:20 → MTU 11-29 07:00
PROVIDERS: ADMIT General Practice; ATTEND General Practice
PROC: 02HV33Z Insertion of Infusion Device into Superior Vena Cava, Percutaneous Approach (ICD-10-PCS; principal; 2018-11-17)
PROC: B548ZZA Ultrasonography of Superior Vena Cava, Guidance (ICD-10-PCS; 2018-11-17)
PROC: 5A1955Z Respiratory Ventilation, Greater than 96 Consecutive Hours (ICD-10-PCS; 2018-11-19)
PROC: 02HV33Z Insertion of Infusion Device into Superior Vena Cava, Percutaneous Approach (ICD-10-PCS; 2018-11-19)
PROC: B548ZZA Ultrasonography of Superior Vena Cava, Guidance (ICD-10-PCS; 2018-11-19)
PROC: 0BH17EZ Insertion of Endotracheal Airway into Trachea, Via Natural or Artificial Opening (ICD-10-PCS; 2018-11-19)
PROC: 3E0234Z Introduction of Serum, Toxoid and Vaccine into Muscle, Percutaneous Approach (ICD-10-PCS; 2018-11-30)
DX: A41.9 Sepsis, unspecified organism (principal); J96.21 Acute and chronic respiratory failure with hypoxia; J69.0 Pneumonitis due to inhalation of food and vomit; M72.6 Necrotizing fasciitis; E43 Unspecified severe protein-calorie malnutrition; N17.0 Acute kidney failure with tubular necrosis; I50.43 Acute on chronic combined systolic (congestive) and diastolic (congestive) heart failure; I42.9 Cardiomyopathy, unspecified; E83.39 Other disorders of phosphorus metabolism; J44.1 Chronic obstructive pulmonary disease with (acute) exacerbation; Z68.42 Body mass index [BMI] 45.0-49.9, adult; D64.9 Anemia, unspecified; E66.2 Morbid (severe) obesity with alveolar hypoventilation; E83.41 Hypermagnesemia; E83.42 Hypomagnesemia; E87.2 Acidosis; E87.6 Hypokalemia; F15.10 Other stimulant abuse, uncomplicated; F31.9 Bipolar disorder, unspecified; F41.9 Anxiety disorder, unspecified; I25.10 Atherosclerotic heart disease of native coronary artery without angina pectoris; I34.0 Nonrheumatic mitral (valve) insufficiency; J96.22 Acute and chronic respiratory failure with hypercapnia; K21.9 Gastro-esophageal reflux disease without esophagitis; K44.9 Diaphragmatic hernia without obstruction or gangrene; M10.9 Gout, unspecified; R13.11 Dysphagia, oral phase; Z87.891 Personal history of nicotine dependence; Z88.7 Allergy status to serum and vaccine; Z23 Encounter for immunization; I11.0 Hypertensive heart disease with heart failure; J45.901 Unspecified asthma with (acute) exacerbation; Z82.49 Family history of ischemic heart disease and other diseases of the circulatory system; Z80.3 Family history of malignant neoplasm of breast; K59.00 Constipation, unspecified; F19.10 Other psychoactive substance abuse, uncomplicated
CPT/HCPCS: 36415; 36556; 36600; 71045; 71275; 74022; 80048; 80053; 80305; 81001; 82803; 83036; 83605; 83690; 83735; 83880; 84100; 84443; 84484; 84703; 85025; 85379; 85610; 85730; 87040; 87070; 87075; 87081; 87086; 87205; 92610; 93005; 93925; 93970; 94003; 94640; 94660; 96365; 96375; 97110; 97116; 97161-GP; 97530; 99291; A6248; C9113; J0456; J0696; J1450; J1642; J1644; J1940; J1956; J2001; J2060; J2270; J2405; J2543; J2704; J2920; J2930; J3010; J3475; J3480; J3490; J7030; J7060; J7620; Q0092; Q9967